=== PATIENT | male | born 1935 | race Caucasian/White ===

== ENCOUNTER 2017-10-13 21:41 | Inpatient (IN) ==
[2017-10-13] MEDS ORDERED: ACETAMINOPHEN 500 MG TABLET PO STA (22:05)
[2017-10-13] MEDS ORDERED: SODIUM CHLORIDE 0.9% 500 ML IV STA (22:05)
[2017-10-13] MEDS ORDERED: ACETAMINOPHEN 500 MG TABLET ONE (22:23)
[2017-10-13 22:24] LABS: Eosinophils % 0.8 % (0.00-10.9); Hematocrit 24.8 VOL% (42.0-52.0); Hemoglobin 8.6 GM/DL (14.0-18.0); Immature Granulocytes % 1.5 %; Immature Granulocytes Absolute 0.02 #; Lymphocytes % 72.9 % (21.2-54.2); Mean Corpuscular HGB Conc 34.7 GM/DL (32-36); Mean Corpuscular Hemoglobin 38 PG (27-34); Mean Corpuscular Volume 108.3 FL (87-102); Mean Platelet Volume 10.4 FL (9.6-12.0); Monocytes # 0.1 10*3/uL (0.11-0.8); Monocytes % 7.5 % (1.7-12.7); Neutrophils # 0.2 10*3/uL (1.4-7.4); Neutrophils % 17.3 % (38.7-73.9); Red Blood Count 2.29 MC/CUMM (3.8-5.5); Red Cell Distribution Width 16.3 % (9.3-17.3); White Blood Count 1.3 T/CUMM (4-12)
[2017-10-13 22:26] LABS: Platelet Count 66 T/CUMM (130-400)
[2017-10-13 22:35] LABS: Apearance,Urine CLEAR (Clear); Bilirubin,Urine Negative (Negative); Blood, Urine Negative (Negative); Glucose,Urine (UA) Negative (Negative); Ketones,Urine Negative (Negative); Mucus,Urine Occasional /LPF (Occasional); Nitrite,Urine Negative (Negative); Protein,Urine Negative; RBC,Urine 1 /HPF (0-4); Squamous Epithelial Cell,Urine Occasional /HPF (0-10); Urine Color Yellow (Yellow); Urine Specific Gravity 1.015 (1.001-1.035); Urine Urobilinogen < 2.0 EU/DL (0.2-1.0); WBC,Urine 1 /HPF (0-6)
[2017-10-13 22:41] LABS: Lactic Acid 1.8 MMOL/L (0.4-2.0)
[2017-10-13 23:10] LABS: Albumin 3.7 G/DL (3.4-5.0); Bilirubin,Total 0.8 MG/DL (0.2-1.0); Calcium 7.8 MG/DL (8.5-10.1); Osmolality,Calculated 278.7 MOS/KG (273-304); Potassium 3.7 MMOL/L (3.5-5.1); Total Protein 6.3 G/DL (6.4-8.3)
[2017-10-13] MEDS ORDERED: LEVOFLOXACIN INJ 750 MG in PREMIX 1 EACH IV STA (23:13)
[2017-10-13] MEDS ORDERED: LEVOFLOXACIN INJ 150 ML IV ONE (23:17)
[2017-10-13 23:32] LABS: Sedimentation Rate-Westergren 69 MM/HR (0-20)
[2017-10-13 23:33] LABS: INR 2.3
[2017-10-13 23:35] LABS: PT Patient Result 23.8 SECS
[2017-10-13] MEDS ORDERED: ONDANSETRON 4 MG/2 ML VIAL IV PRN (23:44)
[2017-10-13] MEDS ORDERED: ACETAMINOPHEN 325 MG TABLET PO PRN (23:44)
[2017-10-13] MEDS ORDERED: MORPHINE 10 MG/1 ML VIAL IV PRN (23:44)
[2017-10-13] MEDS ORDERED: ALBUTEROL/IPRATROPIUM 3 ML NEB RESP TX PRN (23:44)
[2017-10-14] MEDS: SODIUM CHLORIDE 0.9% 1,000 ML IV SCH ×3 (00:36→10:45)
[2017-10-14 00:37] LABS: Lymphocytes 80 % (20-55); Platelet Estimate Decreased; Segmented Neutrophils 10 % (50-85); Total Cells Counted 100
[2017-10-14 00:38] LABS: Hypochromasia Slight; Tear Drop Cells Few
[2017-10-14 00:39] LABS: Polychromasia Slight
[2017-10-14 06:25] LABS: Basophils % 0.8 % (0.0-0.8); Hematocrit 21.4 VOL% (42.0-52.0); Hemoglobin 7.6 GM/DL (14.0-18.0); Immature Granulocytes % 1.6 %; Immature Granulocytes Absolute 0.02 #; Lymphocytes % 77.4 % (21.2-54.2); Mean Corpuscular HGB Conc 35.5 GM/DL (32-36); Mean Corpuscular Hemoglobin 38 PG (27-34); Mean Platelet Volume 10.5 FL (9.6-12.0); Monocytes # 0.1 10*3/uL (0.11-0.8); Monocytes % 8.9 % (1.7-12.7); Neutrophils # 0.1 10*3/uL (1.4-7.4); Neutrophils % 11.3 % (38.7-73.9); Platelet Count 54 T/CUMM (130-400); Red Cell Distribution Width 16.4 % (9.3-17.3); White Blood Count 1.2 T/CUMM (4-12)
[2017-10-14 06:51] LABS: Eosinophils 2 % (0-10); Lymphocytes 80 % (20-55); Metamyelocytes 1 %; Segmented Neutrophils 15 % (50-85); Total Cells Counted 100
[2017-10-14 06:52] LABS: Hypochromasia 1+; Macrocytosis 1+; Ovalocytes Slight; Platelet Estimate Decreased
[2017-10-14 06:53] LABS: Tear Drop Cells Slight
[2017-10-14 06:57] LABS: Albumin 3.1 G/DL (3.4-5.0); Bilirubin,Total 1.4 MG/DL (0.2-1.0); Calcium 7.3 MG/DL (8.5-10.1); Magnesium 2.2 MG/DL (1.8-2.4); Osmolality,Calculated 281.3 MOS/KG (273-304); Potassium 3.8 MMOL/L (3.5-5.1); Total Protein 5.2 G/DL (6.4-8.3)
[2017-10-14] MEDS ORDERED: LANSOPRAZOLE 30 MG PO SCH (09:00)
[2017-10-14] MEDS ORDERED: DOCUSATE SODIUM 100 MG CAPSULE PO SCH (09:00)
[2017-10-14] MEDS: MULTIVITAMIN (CENTRUM) TABLET PO SCH (09:10)
[2017-10-14] MEDS: FLUTICASONE 50 MCG NASAL SPRAY 16 GM BOTTLE BOTH NARES SCH (09:11)
[2017-10-14] MEDS: PANTOPRAZOLE 40 MG VIAL IV SCH (09:14)
[2017-10-14] MEDS: POLYETHYLENE GLYCOL POWDER 17 GM PACK PO SCH (09:20)
[2017-10-14] MEDS: amLODIPine 2.5 MG TABLET PO SCH (09:21)
[2017-10-14] MEDS ORDERED: SODIUM CHLORIDE 0.9% 1,000 ML IV PRN (12:35)
[2017-10-14] MEDS ORDERED: WARFARIN 5 MG TABLET PO SCH (18:00)
[2017-10-14] MEDS: FLECAINIDE 50 MG TABLET PO SCH ×2 (18:16→21:43)
[2017-10-14] MEDS: MAGNESIUM CHLORIDE 64 MG TABLET PO SCH (18:21)
[2017-10-14] MEDS: CLORAZEPATE 3.75 MG TABLET PO SCH (21:44)
[2017-10-15] MEDS: LEVOFLOXACIN INJ 750 MG in PREMIX 1 EACH IV SCH (00:26)
[2017-10-15] MEDS ORDERED: DIAZEPAM 5 MG TABLET PO ONE (08:00)
[2017-10-15] MEDS ORDERED: HEPARIN 5,000 UNIT/1 ML VIAL ONE (08:04)
[2017-10-15] MEDS: SODIUM CHLORIDE 0.9% 1,000 ML IV SCH (08:16)
[2017-10-15] MEDS: POLYETHYLENE GLYCOL POWDER 17 GM PACK PO SCH (12:59)
[2017-10-15] MEDS: MULTIVITAMIN (CENTRUM) TABLET PO SCH (13:01)
[2017-10-15] MEDS: amLODIPine 2.5 MG TABLET PO SCH (13:01)
[2017-10-15] MEDS: FLECAINIDE 50 MG TABLET PO SCH ×2 (13:02→20:54)
[2017-10-15] MEDS: MAGNESIUM CHLORIDE 64 MG TABLET PO SCH (13:03)
[2017-10-15] MEDS: FLUTICASONE 50 MCG NASAL SPRAY 16 GM BOTTLE BOTH NARES SCH (13:04)
[2017-10-15] MEDS ORDERED: WARFARIN 7.5 MG TABLET PO SCH (18:00)
[2017-10-15] MEDS: PANTOPRAZOLE 40 MG VIAL IV SCH (19:01)
[2017-10-15] MEDS: CLORAZEPATE 3.75 MG TABLET PO SCH (20:55)
[2017-10-16] MEDS: LEVOFLOXACIN INJ 750 MG in PREMIX 1 EACH IV SCH (00:30)
[2017-10-16 05:28] LABS: Basophils % 0.6 % (0.0-0.8); Eosinophils # 0.1 10*3/uL (0.0-0.87); Eosinophils % 2.9 % (0.00-10.9); Hematocrit 26.4 VOL% (42.0-52.0); Hemoglobin 9.3 GM/DL (14.0-18.0); Immature Granulocytes % 1.1 %; Immature Granulocytes Absolute 0.02 #; Lymphocytes # 1.4 10*3/uL (1.4-4.0); Lymphocytes % 77.6 % (21.2-54.2); Mean Corpuscular HGB Conc 35.2 GM/DL (32-36); Mean Corpuscular Hemoglobin 35 PG (27-34); Mean Corpuscular Volume 99.6 FL (87-102); Monocytes # 0.2 10*3/uL (0.11-0.8); Monocytes % 9.2 % (1.7-12.7); NRBC # 0.03 10*3/uL; Neutrophils # 0.2 10*3/uL (1.4-7.4); Neutrophils % 8.6 % (38.7-73.9); Platelet Count 45 T/CUMM (130-400); Red Blood Count 2.65 MC/CUMM (3.8-5.5); Red Cell Distribution Width 21.3 % (9.3-17.3); White Blood Count 1.7 T/CUMM (4-12)
[2017-10-16 05:30] LABS: INR 1.3; PT Patient Result 13.3 SECS
[2017-10-16 05:56] LABS: Magnesium 2.2 MG/DL (1.8-2.4); Osmolality,Calculated 282.1 MOS/KG (273-304); Potassium 3.9 MMOL/L (3.5-5.1)
[2017-10-16 06:05] LABS: Eosinophils 7 % (0-10); Hypochromasia 1+; Lymphocytes 78 % (20-55); Platelet Estimate Decreased; Segmented Neutrophils 8 % (50-85); Total Cells Counted 100
[2017-10-16 06:06] LABS: Atypical Lymphocytes Few; Giant Platelets Few; Ovalocytes Slight
[2017-10-16] MEDS: FLUTICASONE 50 MCG NASAL SPRAY 16 GM BOTTLE BOTH NARES SCH (08:41)
[2017-10-16] MEDS: POLYETHYLENE GLYCOL POWDER 17 GM PACK PO SCH (08:41)
[2017-10-16] MEDS: FLECAINIDE 50 MG TABLET PO SCH (08:42)
[2017-10-16] MEDS: MAGNESIUM CHLORIDE 64 MG TABLET PO SCH (08:42)
[2017-10-16] MEDS: amLODIPine 2.5 MG TABLET PO SCH (08:42)
[2017-10-16] MEDS: PANTOPRAZOLE 40 MG VIAL IV SCH (08:42)
[2017-10-16] MEDS: MULTIVITAMIN (CENTRUM) TABLET PO SCH (08:42)
[2017-10-16 12:26] VITALS: BP 133/68
== END 2017-10-16 13:05 | disposition home or self-care (01) | DRG 193 ==
LOC: N.ED 21:41 → N.EDINP 23:15 → N.4E 23:33
PROVIDERS: ADMIT Family Medicine; ATTEND Family Medicine

== ENCOUNTER 2017-10-28 10:12 | Inpatient (IN) ==
[2017-10-28] MEDS ORDERED: LEVOFLOXACIN INJ 750 MG in PREMIX 1 EACH IV STA (10:33)
[2017-10-28] MEDS ORDERED: SODIUM CHLORIDE 0.9% 500 ML IV STA (10:33)
[2017-10-28] MEDS ORDERED: ACETAMINOPHEN 500 MG TABLET PO STA (10:33)
[2017-10-28 11:09] LABS: Hematocrit 33.7 VOL% (42.0-52.0); Hemoglobin 11.5 GM/DL (14.0-18.0); Immature Granulocytes % 11.7 %; Immature Granulocytes Absolute 0.12 #; Lymphocytes # 0.7 10*3/uL (1.4-4.0); Lymphocytes % 64.1 % (21.2-54.2); Mean Corpuscular HGB Conc 34.1 GM/DL (32-36); Mean Corpuscular Hemoglobin 35 PG (27-34); Mean Corpuscular Volume 102.1 FL (87-102); Mean Platelet Volume 9.4 FL (9.6-12.0); Monocytes # 0.2 10*3/uL (0.11-0.8); Monocytes % 15.5 % (1.7-12.7); Neutrophils # 0.1 10*3/uL (1.4-7.4); Neutrophils % 8.7 % (38.7-73.9); Platelet Count 116 T/CUMM (130-400); Red Cell Distribution Width 20.5 % (9.3-17.3)
[2017-10-28 11:22] LABS: INR 2.4
[2017-10-28 11:26] LABS: PT Patient Result 24.4 SECS
[2017-10-28 11:31] LABS: Giant Platelets Few; Hypochromasia 1+; Lymphocytes 88 % (20-55); Macrocytosis Slight; Platelet Estimate Decreased; Polychromasia Slight; Total Cells Counted 100
[2017-10-28 11:32] LABS: Atypical Lymphocytes Few
[2017-10-28 11:37] LABS: Alanine Aminotransferase 24 U/L (16-61); Albumin 3.5 G/DL (3.4-5.0); Alkaline Phosphatase 76 U/L (45-117); Amylase 25 U/L (25-115); Aspartate Amino Transferase 17 U/L (0-37); Blood Urea Nitrogen 16 MG/DL (7-18); Calcium 8.2 MG/DL (8.5-10.1); Glucose 123 MG/DL (74-106); Osmolality,Calculated 271.1 MOS/KG (273-304); Potassium 3.6 MMOL/L (3.5-5.1); Sodium 135 MMOL/L (136-145); Total Protein 6.9 G/DL (6.4-8.3); Troponin I Only < 0.015 NG/ML (0.00-0.045)
[2017-10-28] MEDS ORDERED: ACETAMINOPHEN 500 MG TABLET ONE (11:40)
[2017-10-28] MEDS ORDERED: LEVOFLOXACIN INJ 150 ML IV ONE (11:41)
[2017-10-28 12:48] LABS: Apearance,Urine CLEAR (Clear); Bilirubin,Urine Negative (Negative); Blood, Urine Negative (Negative); Glucose,Urine (UA) Negative (Negative); Hyaline Casts,Urine 1 /LPF (0-3); Ketones,Urine Negative (Negative); Mucus,Urine Occasional /LPF (Occasional); Nitrite,Urine Negative (Negative); Protein,Urine Negative; RBC,Urine 3 /HPF (0-4); Urine Color Yellow (Yellow); Urine Specific Gravity 1.014 (1.001-1.035); Urine Urobilinogen < 2.0 EU/DL (0.2-1.0); WBC,Urine <1 /HPF (0-6)
[2017-10-28] MEDS ORDERED: VANCOMYCIN INJ 1,000 MG in SODIUM CHLORIDE 0.9% 250 ML IV STA (13:11)
[2017-10-28] MEDS ORDERED: VANCOMYCIN 1,000 MG VIAL ONE (14:35)
[2017-10-28] MEDS ORDERED: ONDANSETRON 4 MG/2 ML VIAL IV PRN ×2 (15:28→17:29)
[2017-10-28] MEDS ORDERED: HYDROmorphone 2 MG/1 ML VIAL IV PRN (15:28)
[2017-10-28] MEDS ORDERED: LEVOFLOXACIN INJ 750 MG in PREMIX 1 EACH IV SCH (16:00)
[2017-10-28] MEDS ORDERED: VANCOMYCIN INJ 1,250 MG in SODIUM CHLORIDE 0.9% 250 ML IV SCH (17:00)
[2017-10-28] MEDS ORDERED: MYLANTA/LIDO VISC 2:1 300 ML BOTTLE SWISH/SWAL PRN (17:29)
[2017-10-28] MEDS ORDERED: LOPERAMIDE 2 MG CAPSULE PO PRN ×2 (17:29)
[2017-10-28] MEDS ORDERED: chlorproMAZINE INJ 50 MG in SODIUM CHLORIDE 0.9% 100 ML IV PRN (17:29)
[2017-10-28] MEDS ORDERED: BENZTROPINE 2 MG/2 ML AMP IV PRN (17:29)
[2017-10-28] MEDS ORDERED: PROMETHAZINE INJ 25 MG in SODIUM CHLORIDE 0.9% 50 ML IV PRN (17:29)
[2017-10-28] MEDS ORDERED: chlorproMAZINE INJ 25 MG in SODIUM CHLORIDE 0.9% 100 ML IV PRN (17:29)
[2017-10-28] MEDS ORDERED: diphenhydrAMINE CAP 25 MG CAPSULE PO PRN (17:29)
[2017-10-28] MEDS ORDERED: TEMAZEPAM 7.5 MG CAPSULE PO PRN (17:29)
[2017-10-28] MEDS ORDERED: MYLANTA/LIDO VISC 2:1 300 ML BOTTLE SWISH/SPIT PRN (17:29)
[2017-10-28] MEDS ORDERED: ALUMINUM/MAGNES/SIMETH MAX STR 30 ML UDCUP PO PRN (17:29)
[2017-10-28] MEDS ORDERED: LACTULOSE 20 GM/30 ML UDCUP PO PRN (17:29)
[2017-10-28] MEDS ORDERED: traMADol 50 MG TABLET PO PRN (17:29)
[2017-10-28] MEDS ORDERED: chlorproMAZINE 25 MG TABLET PO PRN (17:29)
[2017-10-28] MEDS ORDERED: ALPRAZolam 0.25 MG TABLET PO PRN (17:29)
[2017-10-28] MEDS: MAGNESIUM HYDROXIDE SUSP 30 ML UDCUP PO PRN (18:10)
[2017-10-28] MEDS: WARFARIN 7.5 MG TABLET PO SCH (18:10)
[2017-10-28 20:24] LABS: INR 2.9
[2017-10-28 20:29] LABS: PT Patient Result 29.1 SECS; Partial Thromboplastin Time 47.8 SECS (0-40)
[2017-10-28] MEDS: FLECAINIDE 50 MG TABLET PO SCH (21:53)
[2017-10-29] MEDS: ACETAMINOPHEN 325 MG TABLET PO PRN ×2 (04:37→22:25)
[2017-10-29 05:27] LABS: Hematocrit 25.6 VOL% (42.0-52.0); Hemoglobin 9.2 GM/DL (14.0-18.0); Immature Granulocytes % 4.2 %; Immature Granulocytes Absolute 0.06 #; Lymphocytes % 70.6 % (21.2-54.2); Mean Corpuscular HGB Conc 35.9 GM/DL (32-36); Mean Corpuscular Hemoglobin 36 PG (27-34); Mean Corpuscular Volume 98.8 FL (87-102); Mean Platelet Volume 9.2 FL (9.6-12.0); Monocytes # 0.3 10*3/uL (0.11-0.8); Monocytes % 18.2 % (1.7-12.7); Neutrophils # 0.1 10*3/uL (1.4-7.4); Platelet Count 118 T/CUMM (130-400); Red Blood Count 2.59 MC/CUMM (3.8-5.5); Red Cell Distribution Width 21.2 % (9.3-17.3); White Blood Count 1.4 T/CUMM (4-12)
[2017-10-29 05:55] LABS: Calcium 7.6 MG/DL (8.5-10.1); Osmolality,Calculated 270.2 MOS/KG (273-304); Potassium 3.7 MMOL/L (3.5-5.1)
[2017-10-29 06:12] LABS: Atypical Lymphocytes Few; Hypochromasia 1+; Lymphocytes 87 % (20-55); Segmented Neutrophils 3 % (50-85); Total Cells Counted 100
[2017-10-29 06:13] LABS: Anisocytosis 1+; Macrocytosis 1+; Ovalocytes Slight
[2017-10-29 06:14] LABS: Platelet Estimate Decreased
[2017-10-29] MEDS ORDERED: MULTIVITAMIN (CENTRUM) TABLET PO SCH (09:00)
[2017-10-29] MEDS ORDERED: amLODIPine 2.5 MG TABLET PO SCH (09:00)
[2017-10-29] MEDS ORDERED: WARFARIN 5 MG TABLET PO SCH ×2 (09:00)
[2017-10-29] MEDS ORDERED: LANSOPRAZOLE 30 MG PO SCH (09:00)
[2017-10-29] MEDS ORDERED: [UNRECOGNIZED DRUG - REMARK] BOTH NARES SCH (09:00)
[2017-10-29] MEDS: PANTOPRAZOLE 40 MG TABLET PO SCH (09:43)
[2017-10-29] MEDS: amLODIPine 2.5 MG TABLET PO SCH (09:44)
[2017-10-29] MEDS: FLECAINIDE 50 MG TABLET PO SCH ×2 (09:44→22:25)
[2017-10-29] MEDS: MAGNESIUM CHLORIDE 64 MG TABLET PO SCH (10:43)
[2017-10-29] MEDS: POLYETHYLENE GLYCOL POWDER 17 GM PACK PO SCH (10:43)
[2017-10-29] MEDS: VANCOMYCIN INJ 1,250 MG in SODIUM CHLORIDE 0.9% 250 ML IV SCH (11:12)
[2017-10-29] MEDS: LEVOFLOXACIN INJ 750 MG in PREMIX 1 EACH IV SCH (12:36)
[2017-10-29] MEDS: WARFARIN 7.5 MG TABLET PO SCH (18:03)
[2017-10-29] MEDS: CLORAZEPATE 3.75 MG TABLET PO SCH (22:25)
[2017-10-30 07:11] LABS: Eosinophils % 1.3 % (0.00-10.9); Hematocrit 28.5 VOL% (42.0-52.0); Hemoglobin 9.8 GM/DL (14.0-18.0); Immature Granulocytes % 0.6 %; Immature Granulocytes Absolute 0.01 #; Lymphocytes # 1.2 10*3/uL (1.4-4.0); Lymphocytes % 73.8 % (21.2-54.2); Mean Corpuscular HGB Conc 34.4 GM/DL (32-36); Mean Corpuscular Hemoglobin 35 PG (27-34); Mean Corpuscular Volume 101.4 FL (87-102); Mean Platelet Volume 9.6 FL (9.6-12.0); Monocytes # 0.2 10*3/uL (0.11-0.8); Monocytes % 12.5 % (1.7-12.7); Neutrophils # 0.2 10*3/uL (1.4-7.4); Neutrophils % 11.8 % (38.7-73.9); Platelet Count 120 T/CUMM (130-400); Red Blood Count 2.81 MC/CUMM (3.8-5.5); Red Cell Distribution Width 20.6 % (9.3-17.3); White Blood Count 1.6 T/CUMM (4-12)
[2017-10-30 07:21] LABS: INR 1.8; PT Patient Result 18.7 SECS
[2017-10-30 07:38] LABS: Albumin 3.3 G/DL (3.4-5.0); Bilirubin,Total 1.4 MG/DL (0.2-1.0); Calcium 8.3 MG/DL (8.5-10.1); Osmolality,Calculated 278.5 MOS/KG (273-304); Potassium 3.6 MMOL/L (3.5-5.1); Total Protein 6.1 G/DL (6.4-8.3)
[2017-10-30 08:01] LABS: Hypochromasia 2+; Lymphocytes 83 % (20-55); Microcytosis Slight; Platelet Estimate Decreased; Segmented Neutrophils 17 % (50-85); Total Cells Counted 100
[2017-10-30] MEDS: POLYETHYLENE GLYCOL POWDER 17 GM PACK PO SCH (10:44)
[2017-10-30] MEDS: MULTIVITAMIN (CENTRUM) TABLET PO SCH (10:45)
[2017-10-30] MEDS: FLECAINIDE 50 MG TABLET PO SCH ×2 (10:45→21:33)
[2017-10-30] MEDS: FLUCONAZOLE 200 MG TABLET PO SCH (10:45)
[2017-10-30] MEDS: PANTOPRAZOLE 40 MG TABLET PO SCH (10:46)
[2017-10-30] MEDS: amLODIPine 2.5 MG TABLET PO SCH (10:46)
[2017-10-30] MEDS: MAGNESIUM CHLORIDE 64 MG TABLET PO SCH (10:47)
[2017-10-30] MEDS: OSELTAMIVIR 75 MG CAPSULE PO SCH ×2 (10:52→21:33)
[2017-10-30] MEDS: VANCOMYCIN INJ 1,250 MG in SODIUM CHLORIDE 0.9% 250 ML IV SCH (11:16)
[2017-10-30] MEDS: LEVOFLOXACIN INJ 750 MG in PREMIX 1 EACH IV SCH (14:33)
[2017-10-30] MEDS: WARFARIN 7.5 MG TABLET PO SCH (17:54)
[2017-10-30] MEDS: CLORAZEPATE 3.75 MG TABLET PO SCH (21:33)
[2017-10-31] MEDS: ACETAMINOPHEN 325 MG TABLET PO PRN ×3 (00:47→16:59)
[2017-10-31 04:34] LABS: Hematocrit 23.2 VOL% (42.0-52.0); Hemoglobin 7.9 GM/DL (14.0-18.0); Immature Granulocytes Absolute 0.05 #; Lymphocytes # 0.8 10*3/uL (1.4-4.0); Mean Corpuscular HGB Conc 34.1 GM/DL (32-36); Mean Corpuscular Hemoglobin 34 PG (27-34); Mean Corpuscular Volume 100.9 FL (87-102); Mean Platelet Volume 9.7 FL (9.6-12.0); Monocytes # 0.2 10*3/uL (0.11-0.8); Platelet Count 89 T/CUMM (130-400); Red Cell Distribution Width 20.1 % (9.3-17.3)
[2017-10-31 04:52] LABS: Albumin 2.8 G/DL (3.4-5.0); Bilirubin,Total 1.3 MG/DL (0.2-1.0); Calcium 7.5 MG/DL (8.5-10.1); Osmolality,Calculated 272.1 MOS/KG (273-304); Potassium 3.4 MMOL/L (3.5-5.1); Total Protein 5.1 G/DL (6.4-8.3)
[2017-10-31 05:29] LABS: Lymphocytes 92 % (20-55); Segmented Neutrophils 4 % (50-85); Total Cells Counted 100
[2017-10-31 05:30] LABS: Atypical Lymphocytes Few; Giant Platelets Few; Hypochromasia 1+; Microcytosis Slight; Ovalocytes Slight; Platelet Estimate Decreased
[2017-10-31] MEDS: POLYETHYLENE GLYCOL POWDER 17 GM PACK PO SCH (09:34)
[2017-10-31] MEDS: OSELTAMIVIR 75 MG CAPSULE PO SCH ×2 (09:35→20:35)
[2017-10-31] MEDS: amLODIPine 2.5 MG TABLET PO SCH (09:35)
[2017-10-31] MEDS: MULTIVITAMIN (CENTRUM) TABLET PO SCH (09:35)
[2017-10-31] MEDS: FLUCONAZOLE 200 MG TABLET PO SCH (09:35)
[2017-10-31] MEDS: MAGNESIUM CHLORIDE 64 MG TABLET PO SCH (09:35)
[2017-10-31] MEDS: PANTOPRAZOLE 40 MG TABLET PO SCH (09:35)
[2017-10-31] MEDS: FLECAINIDE 50 MG TABLET PO SCH ×2 (09:36→20:35)
[2017-10-31] MEDS ORDERED: POTASSIUM CHLORIDE 20 MEQ TABLET PO ONE (10:23)
[2017-10-31] MEDS: VANCOMYCIN INJ 1,250 MG in SODIUM CHLORIDE 0.9% 250 ML IV SCH (11:46)
[2017-10-31] MEDS: LEVOFLOXACIN INJ 750 MG in PREMIX 1 EACH IV SCH (13:39)
[2017-10-31] MEDS: WARFARIN 7.5 MG TABLET PO SCH (17:56)
[2017-10-31] MEDS: CLORAZEPATE 3.75 MG TABLET PO SCH (20:37)
[2017-11-01] MEDS: ACETAMINOPHEN 325 MG TABLET PO PRN ×2 (04:00→18:23)
[2017-11-01] MEDS: guaiFENesin 200 MG/10 ML UDCUP PO PRN ×2 (04:01→22:21)
[2017-11-01 06:58] LABS: Hematocrit 22.4 VOL% (42.0-52.0); Hemoglobin 7.8 GM/DL (14.0-18.0); Immature Granulocytes % 1.1 %; Immature Granulocytes Absolute 0.01 #; Lymphocytes # 0.7 10*3/uL (1.4-4.0); Lymphocytes % 76.7 % (21.2-54.2); Mean Corpuscular HGB Conc 34.8 GM/DL (32-36); Mean Corpuscular Hemoglobin 36 PG (27-34); Mean Corpuscular Volume 101.8 FL (87-102); Mean Platelet Volume 9.6 FL (9.6-12.0); Monocytes # 0.1 10*3/uL (0.11-0.8); Monocytes % 15.6 % (1.7-12.7); Neutrophils # 0.1 10*3/uL (1.4-7.4); Neutrophils % 6.6 % (38.7-73.9); Platelet Count 96 T/CUMM (130-400); Red Cell Distribution Width 20.2 % (9.3-17.3)
[2017-11-01 07:07] LABS: White Blood Count 0.9 T/CUMM (4-12)
[2017-11-01 07:20] LABS: Atypical Lymphocytes Few; Hypochromasia 1+; Lymphocytes 90 % (20-55); Microcytosis Slight; Ovalocytes Slight; Platelet Estimate Decreased; Total Cells Counted 100
[2017-11-01 07:24] LABS: Albumin 2.7 G/DL (3.4-5.0); Calcium 7.6 MG/DL (8.5-10.1); Osmolality,Calculated 269.2 MOS/KG (273-304); Potassium 3.6 MMOL/L (3.5-5.1); Total Protein 5.1 G/DL (6.4-8.3)
[2017-11-01] MEDS: MAGNESIUM CHLORIDE 64 MG TABLET PO SCH (10:37)
[2017-11-01] MEDS: amLODIPine 2.5 MG TABLET PO SCH (10:37)
[2017-11-01] MEDS: OSELTAMIVIR 75 MG CAPSULE PO SCH ×2 (10:37→21:14)
[2017-11-01] MEDS: MULTIVITAMIN (CENTRUM) TABLET PO SCH (10:37)
[2017-11-01] MEDS: POLYETHYLENE GLYCOL POWDER 17 GM PACK PO SCH (10:38)
[2017-11-01] MEDS: FLUCONAZOLE 200 MG TABLET PO SCH (10:38)
[2017-11-01] MEDS: FLECAINIDE 50 MG TABLET PO SCH ×2 (10:38→21:14)
[2017-11-01] MEDS: PANTOPRAZOLE 40 MG TABLET PO SCH (10:38)
[2017-11-01] MEDS ORDERED: SODIUM CHLORIDE 0.9% 1,000 ML IV PRN (11:40)
[2017-11-01] MEDS: VANCOMYCIN INJ 1,250 MG in SODIUM CHLORIDE 0.9% 250 ML IV SCH (12:30)
[2017-11-01] MEDS: LEVOFLOXACIN INJ 750 MG in PREMIX 1 EACH IV SCH (15:09)
[2017-11-01] MEDS: WARFARIN 7.5 MG TABLET PO SCH (18:23)
[2017-11-01] MEDS: MAGNESIUM HYDROXIDE SUSP 30 ML UDCUP PO PRN (18:43)
[2017-11-01] MEDS: CLORAZEPATE 3.75 MG TABLET PO SCH (21:14)
[2017-11-02] MEDS: VANCOMYCIN INJ 1,250 MG in SODIUM CHLORIDE 0.9% 250 ML IV SCH ×2 (00:15→11:32)
[2017-11-02 05:41] LABS: Eosinophils % 1.7 % (0.00-10.9); Hematocrit 27.4 VOL% (42.0-52.0); Hemoglobin 9.8 GM/DL (14.0-18.0); Immature Granulocytes % 5.9 %; Immature Granulocytes Absolute 0.07 #; Lymphocytes % 79.8 % (21.2-54.2); Mean Corpuscular HGB Conc 35.8 GM/DL (32-36); Mean Corpuscular Hemoglobin 33 PG (27-34); Mean Corpuscular Volume 93.2 FL (87-102); Mean Platelet Volume 9.5 FL (9.6-12.0); Monocytes # 0.1 10*3/uL (0.11-0.8); Monocytes % 7.6 % (1.7-12.7); Neutrophils # 0.1 10*3/uL (1.4-7.4); Platelet Count 72 T/CUMM (130-400); Red Blood Count 2.94 MC/CUMM (3.8-5.5); Red Cell Distribution Width 22.4 % (9.3-17.3); White Blood Count 1.2 T/CUMM (4-12)
[2017-11-02 06:30] LABS: Hypochromasia 1+; Lymphocytes 86 % (20-55); Segmented Neutrophils 5 % (50-85); Total Cells Counted 100
[2017-11-02 06:31] LABS: Atypical Lymphocytes Few; Microcytosis 1+; Ovalocytes Slight; Platelet Estimate Decreased
[2017-11-02 06:57] LABS: Albumin 2.5 G/DL (3.4-5.0); Bilirubin,Total 1.3 MG/DL (0.2-1.0); Calcium 7.5 MG/DL (8.5-10.1); Potassium 3.8 MMOL/L (3.5-5.1)
[2017-11-02] MEDS: POLYETHYLENE GLYCOL POWDER 17 GM PACK PO SCH (09:36)
[2017-11-02] MEDS: MULTIVITAMIN (CENTRUM) TABLET PO SCH (09:36)
[2017-11-02] MEDS: FLECAINIDE 50 MG TABLET PO SCH ×2 (09:36→21:39)
[2017-11-02] MEDS: amLODIPine 2.5 MG TABLET PO SCH (09:36)
[2017-11-02] MEDS: MAGNESIUM CHLORIDE 64 MG TABLET PO SCH (09:36)
[2017-11-02] MEDS: OSELTAMIVIR 75 MG CAPSULE PO SCH ×2 (09:36→21:39)
[2017-11-02] MEDS: PANTOPRAZOLE 40 MG TABLET PO SCH (09:37)
[2017-11-02] MEDS: MAGNESIUM HYDROXIDE SUSP 30 ML UDCUP PO PRN (11:32)
[2017-11-02] MEDS: VORICONAZOLE INJ 600 MG in SODIUM CHLORIDE 0.9% 250 ML IV SCH ×2 (11:32→21:42)
[2017-11-02] MEDS: LEVOFLOXACIN INJ 750 MG in PREMIX 1 EACH IV SCH (13:57)
[2017-11-02] MEDS: WARFARIN 7.5 MG TABLET PO SCH (17:37)
[2017-11-02] MEDS: CLORAZEPATE 3.75 MG TABLET PO SCH (21:39)
[2017-11-03] MEDS: VANCOMYCIN INJ 1,250 MG in SODIUM CHLORIDE 0.9% 250 ML IV SCH ×2 (00:58→11:35)
[2017-11-03 05:15] LABS: Hematocrit 26.6 VOL% (42.0-52.0); Hemoglobin 9.2 GM/DL (14.0-18.0); Immature Granulocytes Absolute 0.01 #; Lymphocytes # 0.7 10*3/uL (1.4-4.0); Mean Corpuscular HGB Conc 34.6 GM/DL (32-36); Mean Corpuscular Hemoglobin 33 PG (27-34); Mean Corpuscular Volume 95.7 FL (87-102); Mean Platelet Volume 9.9 FL (9.6-12.0); Monocytes # 0.1 10*3/uL (0.11-0.8); Neutrophils # 0.1 10*3/uL (1.4-7.4); Platelet Count 69 T/CUMM (130-400); Red Blood Count 2.78 MC/CUMM (3.8-5.5); Red Cell Distribution Width 22.4 % (9.3-17.3)
[2017-11-03 05:30] LABS: INR 3.2
[2017-11-03 05:36] LABS: PT Patient Result 32.8 SECS
[2017-11-03 05:51] LABS: Lymphocytes 92 % (20-55); Platelet Estimate Decreased; Segmented Neutrophils 4 % (50-85); Total Cells Counted 100
[2017-11-03 05:52] LABS: Atypical Lymphocytes Few; Giant Platelets Few; Hypochromasia 1+; Microcytosis Slight; Ovalocytes Slight
[2017-11-03] MEDS ORDERED: WARFARIN 5 MG TABLET PO SCH (08:50)
[2017-11-03] MEDS: MAGNESIUM CHLORIDE 64 MG TABLET PO SCH (09:39)
[2017-11-03] MEDS: MULTIVITAMIN (CENTRUM) TABLET PO SCH (09:39)
[2017-11-03] MEDS: FLECAINIDE 50 MG TABLET PO SCH ×2 (09:40→22:40)
[2017-11-03] MEDS: POLYETHYLENE GLYCOL POWDER 17 GM PACK PO SCH ×2 (09:40→09:41)
[2017-11-03] MEDS: OSELTAMIVIR 75 MG CAPSULE PO SCH ×2 (09:40→22:41)
[2017-11-03] MEDS: PANTOPRAZOLE 40 MG TABLET PO SCH (09:40)
[2017-11-03] MEDS: amLODIPine 2.5 MG TABLET PO SCH (09:40)
[2017-11-03] MEDS: VORICONAZOLE INJ 600 MG in SODIUM CHLORIDE 0.9% 250 ML IV SCH ×2 (11:35→22:41)
[2017-11-03] MEDS: LEVOFLOXACIN INJ 750 MG in PREMIX 1 EACH IV SCH (15:53)
[2017-11-03] MEDS: CLORAZEPATE 3.75 MG TABLET PO SCH (22:40)
[2017-11-04] MEDS: VANCOMYCIN INJ 1,250 MG in SODIUM CHLORIDE 0.9% 250 ML IV SCH (01:45)
[2017-11-04 06:08] LABS: Eosinophils % 2.4 % (0.00-10.9); Hematocrit 26.6 VOL% (42.0-52.0); Hemoglobin 9.2 GM/DL (14.0-18.0); Immature Granulocytes % 4.9 %; Immature Granulocytes Absolute 0.04 #; Lymphocytes # 0.6 10*3/uL (1.4-4.0); Lymphocytes % 74.4 % (21.2-54.2); Mean Corpuscular HGB Conc 34.6 GM/DL (32-36); Mean Corpuscular Hemoglobin 34 PG (27-34); Mean Corpuscular Volume 97.4 FL (87-102); Mean Platelet Volume 9.8 FL (9.6-12.0); Monocytes # 0.1 10*3/uL (0.11-0.8); Monocytes % 7.3 % (1.7-12.7); Neutrophils # 0.1 10*3/uL (1.4-7.4); Platelet Count 74 T/CUMM (130-400); Red Blood Count 2.73 MC/CUMM (3.8-5.5); Red Cell Distribution Width 21.7 % (9.3-17.3)
[2017-11-04 06:19] LABS: White Blood Count 0.8 T/CUMM (4-12)
[2017-11-04 06:36] LABS: Band Neutrophils 5 % (0-10); Lymphocytes 79 % (20-55); Segmented Neutrophils 8 % (50-85); Total Cells Counted 100
[2017-11-04 06:37] LABS: Macrocytosis 2+; Platelet Estimate Decreased
[2017-11-04 06:49] LABS: Albumin 2.5 G/DL (3.4-5.0); Bilirubin,Total 0.7 MG/DL (0.2-1.0); Calcium 7.7 MG/DL (8.5-10.1); Osmolality,Calculated 279.3 MOS/KG (273-304); Potassium 3.4 MMOL/L (3.5-5.1); Total Protein 4.8 G/DL (6.4-8.3)
[2017-11-04 07:49] LABS: PT Patient Result 54.2 SECS
[2017-11-04 07:50] LABS: INR 5.5
[2017-11-04] MEDS ORDERED: PHYTONADIONE 10 MG/1 ML AMP SUBCUT ONE (08:33)
[2017-11-04 09:40] LABS: CMV PCR Source CEREBROSPINAL FLUID
[2017-11-04] MEDS: cefTAZidime 1,000 MG in SYRINGE 1 EACH IV SCH ×2 (10:07→17:22)
[2017-11-04] MEDS: OSELTAMIVIR 75 MG CAPSULE PO SCH (10:10)
[2017-11-04] MEDS: amLODIPine 2.5 MG TABLET PO SCH (10:10)
[2017-11-04] MEDS: PANTOPRAZOLE 40 MG TABLET PO SCH (10:10)
[2017-11-04] MEDS: FLECAINIDE 50 MG TABLET PO SCH ×2 (10:10→21:21)
[2017-11-04] MEDS: MAGNESIUM CHLORIDE 64 MG TABLET PO SCH (10:10)
[2017-11-04] MEDS: POLYETHYLENE GLYCOL POWDER 17 GM PACK PO SCH (10:10)
[2017-11-04] MEDS: MULTIVITAMIN (CENTRUM) TABLET PO SCH (10:10)
[2017-11-04] MEDS: VORICONAZOLE INJ 600 MG in SODIUM CHLORIDE 0.9% 250 ML IV SCH ×2 (11:05→22:24)
[2017-11-04] MEDS: CLORAZEPATE 3.75 MG TABLET PO SCH (21:21)
[2017-11-05] MEDS: cefTAZidime 1,000 MG in SYRINGE 1 EACH IV SCH ×2 (02:27→09:43)
[2017-11-05 07:11] LABS: Eosinophils % 2.1 % (0.00-10.9); Hematocrit 28.4 VOL% (42.0-52.0); Hemoglobin 9.7 GM/DL (14.0-18.0); Immature Granulocytes % 4.1 %; Immature Granulocytes Absolute 0.04 #; Lymphocytes # 0.7 10*3/uL (1.4-4.0); Lymphocytes % 73.2 % (21.2-54.2); Mean Corpuscular HGB Conc 34.2 GM/DL (32-36); Mean Corpuscular Hemoglobin 33 PG (27-34); Mean Corpuscular Volume 96.6 FL (87-102); Mean Platelet Volume 9.7 FL (9.6-12.0); Monocytes # 0.1 10*3/uL (0.11-0.8); Monocytes % 11.3 % (1.7-12.7); Neutrophils # 0.1 10*3/uL (1.4-7.4); Neutrophils % 9.3 % (38.7-73.9); Platelet Count 68 T/CUMM (130-400); Red Blood Count 2.94 MC/CUMM (3.8-5.5)
[2017-11-05 07:25] LABS: INR 5.9
[2017-11-05 07:34] LABS: Band Neutrophils 4 % (0-10); Giant Platelets Few; Hypochromasia 1+; Lymphocytes 76 % (20-55); Ovalocytes Slight; Platelet Estimate Decreased; Segmented Neutrophils 4 % (50-85); Total Cells Counted 100
[2017-11-05 07:35] LABS: Atypical Lymphocytes Few; Microcytosis Slight
[2017-11-05 07:50] LABS: Albumin 2.6 G/DL (3.4-5.0); Bilirubin,Total 0.4 MG/DL (0.2-1.0); Calcium 7.9 MG/DL (8.5-10.1); Potassium 3.6 MMOL/L (3.5-5.1); Total Protein 5.3 G/DL (6.4-8.3)
[2017-11-05] MEDS: amLODIPine 2.5 MG TABLET PO SCH (09:42)
[2017-11-05] MEDS: MULTIVITAMIN (CENTRUM) TABLET PO SCH (09:42)
[2017-11-05] MEDS: MAGNESIUM CHLORIDE 64 MG TABLET PO SCH (09:43)
[2017-11-05] MEDS: PANTOPRAZOLE 40 MG TABLET PO SCH (09:43)
[2017-11-05] MEDS: POLYETHYLENE GLYCOL POWDER 17 GM PACK PO SCH (09:43)
[2017-11-05] MEDS: FLECAINIDE 50 MG TABLET PO SCH (09:43)
[2017-11-05 12:20] VITALS: BP 109/54
[2017-11-10 00:11] LABS: Adenovirus Negative (Negative); Influenza A Negative (Negative); Influenza B Negative (Negative); Parainfluenza 1 Negative (Negative); Parainfluenza 2 Negative (Negative); RSV A Negative (Negative); RSV B Negative (Negative)
== END 2017-11-05 11:10 | disposition home or self-care (01) | DRG 152 ==
LOC: N.ED 10:12 → N.EDINP 13:52 → N.4E 15:27
PROVIDERS: ADMIT Specialist; ATTEND Specialist

== ENCOUNTER 2018-06-21 16:47 | Inpatient (IN) ==
[2018-06-21] MEDS ORDERED: SODIUM CHLORIDE 0.9% 2,000 ML IV STA (17:30)
[2018-06-21] MEDS ORDERED: SODIUM CHLORIDE 0.9% 2,300 ML IV ONE (17:46)
[2018-06-21 18:13] LABS: Hematocrit 25.6 VOL% (42.0-52.0); Immature Granulocytes % 5.4 %; Immature Granulocytes Absolute 0.06 #; Lymphocytes # 0.8 10*3/uL (1.4-4.0); Lymphocytes % 67.9 % (21.2-54.2); Mean Corpuscular HGB Conc 35.2 GM/DL (32-36); Mean Corpuscular Hemoglobin 36 PG (27-34); Mean Platelet Volume 9.9 FL (9.6-12.0); Monocytes # 0.2 10*3/uL (0.11-0.8); Monocytes % 18.8 % (1.7-12.7); Neutrophils # 0.1 10*3/uL (1.4-7.4); Neutrophils % 7.9 % (38.7-73.9); Platelet Count 102 T/CUMM (130-400); Red Blood Count 2.51 MC/CUMM (3.8-5.5); Red Cell Distribution Width 21.3 % (9.3-17.3); White Blood Count 1.1 T/CUMM (4-12)
[2018-06-21 18:20] LABS: INR 1.2; Partial Thromboplastin Time 30.6 SECS (0-40)
[2018-06-21 18:30] LABS: Albumin 3.5 G/DL (3.4-5.0); Bilirubin,Total 1.5 MG/DL (0.2-1.0); Calcium 7.5 MG/DL (8.5-10.1); Potassium 3.7 MMOL/L (3.5-5.1); Total Protein 6.2 G/DL (6.4-8.3)
[2018-06-21] MEDS ORDERED: AZTREONAM 1,000 MG VIAL ONE (18:41)
[2018-06-21] MEDS: AZTREONAM 2,000 MG in SYRINGE 1 EACH IV SCH (18:55)
[2018-06-21 19:06] LABS: Anisocytosis 1+; Lymphocytes 72 % (20-55); Platelet Estimate Decreased; Segmented Neutrophils 7 % (50-85); Total Cells Counted 100
[2018-06-21 19:07] LABS: Tear Drop Cells Few
[2018-06-21 19:08] LABS: Hypochromasia 1+
[2018-06-21 19:37] LABS: Apearance,Urine Slightly Hazy (Clear); Bilirubin,Urine Negative (Negative); Blood, Urine Negative (Negative); Glucose,Urine (UA) Negative (Negative); Ketones,Urine Negative (Negative); Mucus,Urine Occasional /LPF (Occasional); Nitrite,Urine Negative (Negative); Protein,Urine Negative; RBC,Urine <1 /HPF (0-4); Urine Color Yellow (Yellow); Urine Specific Gravity 1.015 (1.001-1.035); Urine Urobilinogen < 2.0 EU/DL (0.2-1.0); WBC,Urine 1 /HPF (0-6)
[2018-06-21] MEDS: VANCOMYCIN INJ 1,250 MG in SODIUM CHLORIDE 0.9% 250 ML IV SCH (19:50)
[2018-06-21] MEDS ORDERED: METOCLOPRAMIDE 10 MG/2 ML VIAL IV STA (19:52)
[2018-06-21] MEDS ORDERED: KETOROLAC 30 MG/1 ML VIAL IV STA (19:52)
[2018-06-21] MEDS ORDERED: diphenhydrAMINE 50 MG/1 ML VIAL IV STA (19:52)
[2018-06-21] MEDS ORDERED: ACETAMINOPHEN 500 MG TABLET PO STA (19:53)
[2018-06-21] MEDS ORDERED: ACETAMINOPHEN 325 MG TABLET PO PRN (20:33)
[2018-06-21] MEDS ORDERED: KETOROLAC 30 MG/1 ML VIAL IV PRN (20:33)
[2018-06-21] MEDS ORDERED: ONDANSETRON 4 MG/2 ML VIAL IV PRN (20:33)
[2018-06-21] MEDS: DEXTROSE 5% NACL 0.9% 1,000 ML IV SCH (23:52)
[2018-06-22] MEDS ORDERED: SODIUM CHLORIDE 0.9% 500 ML IV ONE (00:29)
[2018-06-22] MEDS: AZTREONAM 2,000 MG in SYRINGE 1 EACH IV SCH ×4 (00:33→17:46)
[2018-06-22] MEDS: DOCUSATE SODIUM 100 MG CAPSULE PO SCH ×3 (00:33→21:41)
[2018-06-22] MEDS ORDERED: NOREPINEPHRINE 8 MG in SODIUM CHLORIDE 0.9% 242 ML IV PRN (02:12)
[2018-06-22 04:17] LABS: Hematocrit 22.9 VOL% (42.0-52.0); Hemoglobin 7.7 GM/DL (14.0-18.0); Immature Granulocytes % 0.5 %; Immature Granulocytes Absolute 0.01 #; Lymphocytes # 1.5 10*3/uL (1.4-4.0); Lymphocytes % 77.8 % (21.2-54.2); Mean Corpuscular HGB Conc 33.6 GM/DL (32-36); Mean Corpuscular Hemoglobin 36 PG (27-34); Mean Corpuscular Volume 107.5 FL (87-102); Mean Platelet Volume 9.1 FL (9.6-12.0); Monocytes # 0.2 10*3/uL (0.11-0.8); Monocytes % 10.6 % (1.7-12.7); Neutrophils # 0.2 10*3/uL (1.4-7.4); Neutrophils % 11.1 % (38.7-73.9); Red Blood Count 2.13 MC/CUMM (3.8-5.5); Red Cell Distribution Width 21.5 % (9.3-17.3); White Blood Count 1.9 T/CUMM (4-12)
[2018-06-22 04:23] LABS: Platelet Count 93 T/CUMM (130-400)
[2018-06-22 04:53] LABS: Albumin 2.8 G/DL (3.4-5.0); Bilirubin,Total 0.7 MG/DL (0.2-1.0); Calcium 7.1 MG/DL (8.5-10.1); Osmolality,Calculated 282.5 MOS/KG (273-304); Potassium 3.4 MMOL/L (3.5-5.1); Total Protein 5.6 G/DL (6.4-8.3)
[2018-06-22 04:55] LABS: Eosinophils 1 % (0-10); Lymphocytes 88 % (20-55); Segmented Neutrophils 2 % (50-85); Total Cells Counted 100
[2018-06-22 04:56] LABS: Anisocytosis 1+; Atypical Lymphocytes Few; Hypochromasia 1+; Macrocytosis 1+
[2018-06-22 04:57] LABS: Ovalocytes Slight; Platelet Estimate Decreased; Tear Drop Cells Slight
[2018-06-22] MEDS: DEXTROSE 5% NACL 0.9% 1,000 ML IV SCH ×4 (06:14→21:01)
[2018-06-22] MEDS ORDERED: TEMAZEPAM 15 MG CAPSULE PO PRN (07:14)
[2018-06-22] MEDS ORDERED: POTASSIUM CHLORIDE 20 MEQ/15 ML UDCUP PO ONE ×2 (07:33→12:00)
[2018-06-22] MEDS ORDERED: SODIUM CHLORIDE 0.9% 1,000 ML IV PRN (07:42)
[2018-06-22] MEDS: WARFARIN 3 MG TABLET PO SCH (08:43)
[2018-06-22] MEDS: PANTOPRAZOLE 40 MG TABLET PO SCH (08:43)
[2018-06-22] MEDS: CYANOCOBALAMIN 500 MCG TABLET PO SCH (08:44)
[2018-06-22] MEDS: FLECAINIDE 50 MG TABLET PO SCH ×2 (08:44→21:41)
[2018-06-22] MEDS ORDERED: amLODIPine 2.5 MG TABLET PO SCH (09:00)
[2018-06-22] MEDS: VANCOMYCIN INJ 1,250 MG in SODIUM CHLORIDE 0.9% 250 ML IV SCH (14:01)
[2018-06-22] MEDS: POLYMYXIN/TRIMETHOPRIM OPH SOL 10 ML BOTTLE LEFT EYE SCH ×3 (17:46→21:39)
[2018-06-22] MEDS: CLORAZEPATE 3.75 MG TABLET PO SCH (21:41)
[2018-06-23] MEDS: AZTREONAM 2,000 MG in SYRINGE 1 EACH IV SCH ×4 (01:17→20:39)
[2018-06-23] MEDS: DEXTROSE 5% NACL 0.9% 1,000 ML IV SCH ×2 (04:01→11:20)
[2018-06-23 04:56] LABS: Eosinophils % 1.3 % (0.00-10.9); Hematocrit 26.4 VOL% (42.0-52.0); Hemoglobin 9.3 GM/DL (14.0-18.0); Immature Granulocytes % 4.5 %; Immature Granulocytes Absolute 0.07 #; Lymphocytes # 1.3 10*3/uL (1.4-4.0); Lymphocytes % 82.2 % (21.2-54.2); Mean Corpuscular HGB Conc 35.2 GM/DL (32-36); Mean Corpuscular Hemoglobin 35 PG (27-34); Mean Corpuscular Volume 98.5 FL (87-102); Monocytes # 0.1 10*3/uL (0.11-0.8); Monocytes % 8.3 % (1.7-12.7); Neutrophils # 0.1 10*3/uL (1.4-7.4); Neutrophils % 3.7 % (38.7-73.9); Red Blood Count 2.68 MC/CUMM (3.8-5.5); Red Cell Distribution Width 21.1 % (9.3-17.3); White Blood Count 1.6 T/CUMM (4-12)
[2018-06-23 05:00] LABS: Platelet Count 68 T/CUMM (130-400)
[2018-06-23 05:24] LABS: Calcium 7.7 MG/DL (8.5-10.1); Osmolality,Calculated 283.1 MOS/KG (273-304); Potassium 3.9 MMOL/L (3.5-5.1)
[2018-06-23 06:03] LABS: Band Neutrophils 2 % (0-10); Lymphocytes 64 % (20-55); Platelet Estimate Decreased; Segmented Neutrophils 12 % (50-85); Total Cells Counted 100
[2018-06-23] MEDS: FLECAINIDE 50 MG TABLET PO SCH ×2 (10:17→20:38)
[2018-06-23] MEDS: CYANOCOBALAMIN 500 MCG TABLET PO SCH (10:17)
[2018-06-23] MEDS: POTASSIUM CHLORIDE 20 MEQ/15 ML UDCUP PO SCH (10:18)
[2018-06-23] MEDS: DOCUSATE SODIUM 100 MG CAPSULE PO SCH ×2 (10:18→20:38)
[2018-06-23] MEDS: POLYMYXIN/TRIMETHOPRIM OPH SOL 10 ML BOTTLE LEFT EYE SCH ×4 (10:18→20:38)
[2018-06-23] MEDS: PANTOPRAZOLE 40 MG TABLET PO SCH (10:18)
[2018-06-23] MEDS: VANCOMYCIN INJ 1,250 MG in SODIUM CHLORIDE 0.9% 250 ML IV SCH (10:18)
[2018-06-23] MEDS: WARFARIN 3 MG TABLET PO SCH (10:20)
[2018-06-23] MEDS: CLORAZEPATE 3.75 MG TABLET PO SCH (20:38)
[2018-06-24] MEDS: DEXTROSE 5% NACL 0.9% 1,000 ML IV SCH (00:04)
[2018-06-24] MEDS: AZTREONAM 2,000 MG in SYRINGE 1 EACH IV SCH ×2 (01:00→09:14)
[2018-06-24] MEDS: VANCOMYCIN INJ 1,250 MG in SODIUM CHLORIDE 0.9% 250 ML IV SCH (01:02)
[2018-06-24 03:20] LABS: Eosinophils % 2.8 % (0.00-10.9); Hematocrit 23.9 VOL% (42.0-52.0); Hemoglobin 8.1 GM/DL (14.0-18.0); Immature Granulocytes % 2.8 %; Immature Granulocytes Absolute 0.03 #; Lymphocytes # 0.8 10*3/uL (1.4-4.0); Lymphocytes % 79.2 % (21.2-54.2); Mean Corpuscular HGB Conc 33.9 GM/DL (32-36); Mean Corpuscular Hemoglobin 34 PG (27-34); Mean Corpuscular Volume 100.4 FL (87-102); Mean Platelet Volume 10.1 FL (9.6-12.0); Monocytes # 0.1 10*3/uL (0.11-0.8); Monocytes % 8.5 % (1.7-12.7); Neutrophils # 0.1 10*3/uL (1.4-7.4); Neutrophils % 6.7 % (38.7-73.9); Red Blood Count 2.38 MC/CUMM (3.8-5.5); Red Cell Distribution Width 20.4 % (9.3-17.3); White Blood Count 1.1 T/CUMM (4-12)
[2018-06-24 03:24] LABS: INR 1.2; PT Patient Result 12.6 SECS; Platelet Count 59 T/CUMM (130-400)
[2018-06-24 03:52] LABS: Eosinophils 2 % (0-10); Lymphocytes 85 % (20-55); Metamyelocytes 1 %; Segmented Neutrophils 4 % (50-85)
[2018-06-24 03:54] LABS: Hypochromasia Slight; Ovalocytes 1+; Platelet Estimate Decreased
[2018-06-24 03:55] LABS: Tear Drop Cells Few; Total Cells Counted 100
[2018-06-24 04:16] LABS: Reactive Lymphocytes 3+
[2018-06-24 04:17] LABS: Atypical Lymphocytes Few
[2018-06-24 08:36] VITALS: BP 129/65
[2018-06-24] MEDS: DOCUSATE SODIUM 100 MG CAPSULE PO SCH (09:07)
[2018-06-24] MEDS: PANTOPRAZOLE 40 MG TABLET PO SCH (09:07)
[2018-06-24] MEDS: FLECAINIDE 50 MG TABLET PO SCH (09:08)
[2018-06-24] MEDS: CYANOCOBALAMIN 500 MCG TABLET PO SCH (09:09)
[2018-06-24] MEDS: WARFARIN 3 MG TABLET PO SCH (09:09)
[2018-06-24] MEDS: POTASSIUM CHLORIDE 20 MEQ/15 ML UDCUP PO SCH (09:11)
[2018-06-24] MEDS: POLYMYXIN/TRIMETHOPRIM OPH SOL 10 ML BOTTLE LEFT EYE SCH (09:22)
== END 2018-06-24 12:20 | disposition home or self-care (01) | DRG 809 ==
LOC: N.ED 16:47 → N.EDINP 20:33 → N.CC 23:23 → N.4E 06-23 11:15
PROVIDERS: ADMIT Family Medicine; ATTEND Family Medicine

== ENCOUNTER 2018-07-06 17:51 | Inpatient (IN) ==
[2018-07-06] MEDS ORDERED: SODIUM CHLORIDE 0.9% 500 ML IV STA (18:08)
[2018-07-06] MEDS ORDERED: LEVOFLOXACIN INJ 750 MG in PREMIX 1 EACH IV STA (18:11)
[2018-07-06] MEDS ORDERED: KETOROLAC 30 MG/1 ML VIAL IV STA (18:34)
[2018-07-06] MEDS ORDERED: methylPREDNISolone SOD SUC 125 MG/2 ML VIAL IV STA (18:34)
[2018-07-06 18:58] LABS: Hematocrit 28.6 VOL% (42.0-52.0); Hemoglobin 9.7 GM/DL (14.0-18.0); Immature Granulocytes % 3.7 %; Immature Granulocytes Absolute 0.02 #; Lymphocytes # 0.4 10*3/uL (1.4-4.0); Lymphocytes % 68.5 % (21.2-54.2); Mean Corpuscular HGB Conc 33.9 GM/DL (32-36); Mean Corpuscular Hemoglobin 34 PG (27-34); Mean Corpuscular Volume 99.3 FL (87-102); Mean Platelet Volume 8.5 FL (9.6-12.0); Monocytes % 7.4 % (1.7-12.7); Neutrophils # 0.1 10*3/uL (1.4-7.4); Neutrophils % 20.4 % (38.7-73.9); Platelet Count 85 T/CUMM (130-400); Red Blood Count 2.88 MC/CUMM (3.8-5.5); Red Cell Distribution Width 20.2 % (9.3-17.3)
[2018-07-06 19:02] LABS: White Blood Count 0.5 T/CUMM (4-12)
[2018-07-06 19:03] LABS: INR 2.6
[2018-07-06 19:14] LABS: Alanine Aminotransferase 30 U/L (16-61); Albumin 3.9 G/DL (3.4-5.0); Alkaline Phosphatase 74 U/L (45-117); Amylase 60 U/L (25-115); Aspartate Amino Transferase 21 U/L (0-37); Blood Urea Nitrogen 20 MG/DL (7-18); Calcium 8.3 MG/DL (8.5-10.1); Glucose 100 MG/DL (74-106); Osmolality,Calculated 268.4 MOS/KG (273-304); Potassium 3.7 MMOL/L (3.5-5.1); Sodium 133 MMOL/L (136-145); Total Protein 7.6 G/DL (6.4-8.3); Troponin I 0.023 NG/ML (0.00-0.045)
[2018-07-06 19:19] LABS: PT Patient Result 26.2 SECS
[2018-07-06 19:30] LABS: Lactic Acid 2.1 MMOL/L (0.4-2.0)
[2018-07-06] MEDS ORDERED: VANCOMYCIN INJ 1,000 MG in SODIUM CHLORIDE 0.9% 250 ML IV STA (19:44)
[2018-07-06 19:54] LABS: Apearance,Urine CLEAR (Clear); Bilirubin,Urine Negative (Negative); Blood, Urine Negative (Negative); Glucose,Urine (UA) Negative (Negative); Ketones,Urine Negative (Negative); Mucus,Urine Occasional /LPF (Occasional); Nitrite,Urine Negative (Negative); Protein,Urine Negative; RBC,Urine 1 /HPF (0-4); Urine Color Yellow (Yellow); Urine Specific Gravity 1.014 (1.001-1.035); Urine Urobilinogen < 2.0 EU/DL (0.2-1.0); WBC,Urine 2 /HPF (0-6)
[2018-07-06] MEDS ORDERED: ONDANSETRON 4 MG/2 ML VIAL IV PRN (20:10)
[2018-07-06] MEDS ORDERED: CLORAZEPATE 7.5 MG TABLET PO PRN (20:10)
[2018-07-06] MEDS ORDERED: ACETAMINOPHEN 500 MG TABLET PO PRN (20:10)
[2018-07-06] MEDS ORDERED: MAGNESIUM HYDROXIDE SUSP 30 ML UDCUP PO PRN (22:30)
[2018-07-06 22:32] LABS: Band Neutrophils 2 % (0-10); Lymphocytes 80 % (20-55); Segmented Neutrophils 12 % (50-85)
[2018-07-06 22:34] LABS: Hypochromasia 1+; Platelet Estimate Adequate
[2018-07-06 22:37] LABS: Polychromasia Few; Tear Drop Cells Few; Total Cells Counted 100
[2018-07-06] MEDS: WARFARIN 4 MG TABLET PO SCH ×2 (22:43→22:49)
[2018-07-06] MEDS: FLECAINIDE 50 MG TABLET PO SCH (22:43)
[2018-07-06] MEDS: TEMAZEPAM 15 MG CAPSULE PO PRN (22:43)
[2018-07-06] MEDS: WARFARIN 3 MG TABLET PO SCH (22:43)
[2018-07-07 06:34] LABS: Hematocrit 24.7 VOL% (42.0-52.0); Hemoglobin 8.3 GM/DL (14.0-18.0); Immature Granulocytes % 15.5 %; Immature Granulocytes Absolute 0.11 #; Lymphocytes # 0.2 10*3/uL (1.4-4.0); Lymphocytes % 32.4 % (21.2-54.2); Mean Corpuscular HGB Conc 33.6 GM/DL (32-36); Mean Corpuscular Hemoglobin 34 PG (27-34); Mean Platelet Volume 9.5 FL (9.6-12.0); Monocytes # 0.1 10*3/uL (0.11-0.8); Monocytes % 9.9 % (1.7-12.7); Neutrophils # 0.3 10*3/uL (1.4-7.4); Neutrophils % 42.2 % (38.7-73.9); Platelet Count 93 T/CUMM (130-400); Red Blood Count 2.47 MC/CUMM (3.8-5.5); Red Cell Distribution Width 19.9 % (9.3-17.3)
[2018-07-07 06:36] LABS: White Blood Count 0.7 T/CUMM (4-12)
[2018-07-07 06:49] LABS: INR 2.3
[2018-07-07 06:50] LABS: PT Patient Result 23.4 SECS; Partial Thromboplastin Time 45.1 SECS (0-40)
[2018-07-07 06:57] LABS: Band Neutrophils 5 % (0-10); Lymphocytes 44 % (20-55); Nucleated Red Blood Cells 2 (0-5); Segmented Neutrophils 39 % (50-85); Total Cells Counted 100
[2018-07-07 06:58] LABS: Atypical Lymphocytes Few; Hypochromasia 1+; Ovalocytes Slight; Platelet Estimate Decreased
[2018-07-07 07:03] LABS: Calcium 8.1 MG/DL (8.5-10.1); Osmolality,Calculated 278.8 MOS/KG (273-304); Potassium 4.4 MMOL/L (3.5-5.1)
[2018-07-07] MEDS ORDERED: SODIUM PHOSPHATE ENEMA 133 ML BOTTLE RECTAL PRN (08:08)
[2018-07-07] MEDS ORDERED: SODIUM PHOSPHATE ENEMA 133 ML BOTTLE RECTAL ONE (08:08)
[2018-07-07] MEDS ORDERED: MAGNESIUM CITRATE 300 ML BOTTLE PO ONE (08:10)
[2018-07-07] MEDS ORDERED: MAGNESIUM CITRATE 300 ML BOTTLE PO PRN (08:10)
[2018-07-07] MEDS ORDERED: INFLUENZA VIRUS VACCINE 0.5 ML SYRINGE IM ONE (09:00)
[2018-07-07] MEDS: PANTOPRAZOLE 40 MG TABLET PO SCH (09:15)
[2018-07-07] MEDS: FLECAINIDE 50 MG TABLET PO SCH ×2 (09:15→20:41)
[2018-07-07] MEDS: VANCOMYCIN INJ 1,000 MG in SODIUM CHLORIDE 0.9% 250 ML IV SCH ×2 (09:19→20:42)
[2018-07-07] MEDS ORDERED: DEXTROSE 5% 1,000 ML IV SCH (09:30)
[2018-07-07] MEDS: amLODIPine 2.5 MG TABLET PO SCH (10:31)
[2018-07-07] MEDS: SODIUM CHLORIDE 0.9% IV SCH (12:41)
[2018-07-07] MEDS: DECITABINE IV SCH (12:41)
[2018-07-07] MEDS: WARFARIN 4 MG TABLET PO SCH (17:22)
[2018-07-07] MEDS: WARFARIN 3 MG TABLET PO SCH (18:56)
[2018-07-07] MEDS: LEVOFLOXACIN INJ 750 MG in PREMIX 1 EACH IV SCH (22:21)
[2018-07-08] MEDS: TEMAZEPAM 15 MG CAPSULE PO PRN ×2 (01:28→21:10)
[2018-07-08 03:15] LABS: Hematocrit 22.4 VOL% (42.0-52.0); Hemoglobin 7.4 GM/DL (14.0-18.0); Immature Granulocytes % 11.5 %; Immature Granulocytes Absolute 0.12 #; Lymphocytes # 0.6 10*3/uL (1.4-4.0); Lymphocytes % 56.7 % (21.2-54.2); Mean Corpuscular Hemoglobin 33 PG (27-34); Mean Corpuscular Volume 100.9 FL (87-102); Mean Platelet Volume 9.8 FL (9.6-12.0); Monocytes # 0.1 10*3/uL (0.11-0.8); Monocytes % 8.7 % (1.7-12.7); Neutrophils # 0.2 10*3/uL (1.4-7.4); Neutrophils % 23.1 % (38.7-73.9); Platelet Count 85 T/CUMM (130-400); Red Blood Count 2.22 MC/CUMM (3.8-5.5); Red Cell Distribution Width 20.2 % (9.3-17.3)
[2018-07-08 03:34] LABS: Calcium 7.6 MG/DL (8.5-10.1); Osmolality,Calculated 281.4 MOS/KG (273-304); Potassium 4.1 MMOL/L (3.5-5.1)
[2018-07-08 03:46] LABS: Band Neutrophils 6 % (0-10); Lymphocytes 68 % (20-55); Platelet Estimate Decreased; Segmented Neutrophils 23 % (50-85); Total Cells Counted 100
[2018-07-08 03:47] LABS: Polychromasia Few
[2018-07-08] MEDS ORDERED: SODIUM CHLORIDE 0.9% 1,000 ML IV PRN ×2 (08:17→08:35)
[2018-07-08] MEDS: FLECAINIDE 50 MG TABLET PO SCH ×2 (09:22→21:26)
[2018-07-08] MEDS: PANTOPRAZOLE 40 MG TABLET PO SCH (09:22)
[2018-07-08] MEDS: DECITABINE IV SCH (14:58)
[2018-07-08] MEDS: SODIUM CHLORIDE 0.9% IV SCH (14:58)
[2018-07-08] MEDS: WARFARIN 4 MG TABLET PO SCH (21:10)
[2018-07-08] MEDS: WARFARIN 3 MG TABLET PO SCH (21:10)
[2018-07-08] MEDS: LEVOFLOXACIN INJ 750 MG in PREMIX 1 EACH IV SCH (21:11)
[2018-07-09 06:37] LABS: Hematocrit 31.2 VOL% (42.0-52.0); Immature Granulocytes % 7.8 %; Immature Granulocytes Absolute 0.08 #; Lymphocytes # 0.6 10*3/uL (1.4-4.0); Lymphocytes % 58.8 % (21.2-54.2); Mean Corpuscular Hemoglobin 33 PG (27-34); Mean Corpuscular Volume 96.9 FL (87-102); Mean Platelet Volume 8.4 FL (9.6-12.0); Monocytes # 0.1 10*3/uL (0.11-0.8); Monocytes % 4.9 % (1.7-12.7); Neutrophils # 0.3 10*3/uL (1.4-7.4); Neutrophils % 28.5 % (38.7-73.9); Platelet Count 89 T/CUMM (130-400); Red Blood Count 3.22 MC/CUMM (3.8-5.5); Red Cell Distribution Width 18.9 % (9.3-17.3)
[2018-07-09 06:38] LABS: Hemoglobin 10.6 GM/DL (14.0-18.0)
[2018-07-09 06:55] LABS: INR 2.9
[2018-07-09 06:56] LABS: PT Patient Result 29.1 SECS
[2018-07-09 07:02] LABS: Band Neutrophils 1 % (0-10); Eosinophils 1 % (0-10); Lymphocytes 62 % (20-55); Osmolality,Calculated 272.8 MOS/KG (273-304); Platelet Estimate Decreased; Segmented Neutrophils 31 % (50-85); Total Cells Counted 100
[2018-07-09 07:03] LABS: Atypical Lymphocytes Few; Hypochromasia 1+; Ovalocytes Slight
[2018-07-09] MEDS: PANTOPRAZOLE 40 MG TABLET PO SCH (09:23)
[2018-07-09] MEDS: amLODIPine 2.5 MG TABLET PO SCH (09:23)
[2018-07-09] MEDS: FLECAINIDE 50 MG TABLET PO SCH (09:23)
[2018-07-09] MEDS: SODIUM CHLORIDE 0.9% IV SCH (11:16)
[2018-07-09] MEDS: DECITABINE IV SCH (11:16)
[2018-07-09 13:34] VITALS: BP 161/72
== END 2018-07-09 13:42 | disposition home or self-care (01) | DRG 809 ==
LOC: N.ED 17:51 → N.EDINP 20:09 → N.4E 21:02
PROVIDERS: ADMIT Family Medicine; ATTEND Family Medicine

== ENCOUNTER 2018-07-22 00:59 | Inpatient (IN) ==
[2018-07-22] MEDS ORDERED: SODIUM CHLORIDE 0.9% 1,000 ML IV STA ×2 (01:35→03:09)
[2018-07-22 02:29] LABS: Apearance,Urine CLEAR (Clear); Bilirubin,Urine Negative (Negative); Blood, Urine Negative (Negative); Glucose,Urine (UA) Negative (Negative); Ketones,Urine Negative (Negative); Nitrite,Urine Negative (Negative); Protein,Urine Negative; Urine Color Straw (Yellow); Urine Specific Gravity 1.005 (1.001-1.035); Urine Urobilinogen < 2.0 EU/DL (0.2-1.0); WBC,Urine 1 /HPF (0-6)
[2018-07-22 02:33] LABS: Hematocrit 23.3 VOL% (42.0-52.0); Hemoglobin 8.2 GM/DL (14.0-18.0); Immature Granulocytes % 1.4 %; Immature Granulocytes Absolute 0.01 #; Lymphocytes # 0.4 10*3/uL (1.4-4.0); Lymphocytes % 58.3 % (21.2-54.2); Mean Corpuscular HGB Conc 35.2 GM/DL (32-36); Mean Corpuscular Hemoglobin 33 PG (27-34); Mean Platelet Volume 12.4 FL (9.6-12.0); Monocytes # 0.2 10*3/uL (0.11-0.8); Monocytes % 30.6 % (1.7-12.7); Neutrophils # 0.1 10*3/uL (1.4-7.4); Neutrophils % 9.7 % (38.7-73.9); Red Blood Count 2.48 MC/CUMM (3.8-5.5); Red Cell Distribution Width 17.3 % (9.3-17.3)
[2018-07-22 02:52] LABS: Platelet Count 30 T/CUMM (130-400); White Blood Count 0.7 T/CUMM (4-12)
[2018-07-22 02:54] LABS: Albumin 2.8 G/DL (3.4-5.0); Bilirubin,Total 0.8 MG/DL (0.2-1.0); Calcium 7.8 MG/DL (8.5-10.1); Osmolality,Calculated 263.5 MOS/KG (273-304); Potassium 3.4 MMOL/L (3.5-5.1); Total Protein 6.1 G/DL (6.4-8.3)
[2018-07-22] MEDS ORDERED: VANCOMYCIN INJ 1,000 MG in SODIUM CHLORIDE 0.9% 250 ML IV STA (03:10)
[2018-07-22] MEDS ORDERED: MEROPENEM 1,000 MG in SODIUM CHLORIDE 0.9% 100 ML IV STA (03:10)
[2018-07-22] MEDS ORDERED: LACTULOSE 20 GM/30 ML UDCUP PO PRN (03:13)
[2018-07-22] MEDS ORDERED: guaiFENesin 200 MG/10 ML UDCUP PO PRN (03:13)
[2018-07-22] MEDS ORDERED: chlorproMAZINE INJ 25 MG in SODIUM CHLORIDE 0.9% 100 ML IV PRN (03:13)
[2018-07-22] MEDS ORDERED: traMADol 50 MG TABLET PO PRN (03:13)
[2018-07-22] MEDS ORDERED: ALPRAZolam 0.25 MG TABLET PO PRN (03:13)
[2018-07-22] MEDS ORDERED: BENZTROPINE 2 MG/2 ML AMP IV PRN (03:13)
[2018-07-22] MEDS ORDERED: chlorproMAZINE 25 MG TABLET PO PRN (03:13)
[2018-07-22] MEDS ORDERED: chlorproMAZINE INJ 50 MG in SODIUM CHLORIDE 0.9% 100 ML IV PRN (03:13)
[2018-07-22] MEDS ORDERED: PROMETHAZINE INJ 25 MG in SODIUM CHLORIDE 0.9% 50 ML IV PRN (03:13)
[2018-07-22] MEDS ORDERED: ONDANSETRON 4 MG/2 ML VIAL IV PRN (03:13)
[2018-07-22] MEDS ORDERED: MYLANTA/LIDO VISC 2:1 300 ML BOTTLE SWISH/SPIT PRN (03:13)
[2018-07-22] MEDS ORDERED: MYLANTA/LIDO VISC 2:1 300 ML BOTTLE SWISH/SWAL PRN (03:13)
[2018-07-22] MEDS ORDERED: diphenhydrAMINE CAP 25 MG CAPSULE PO PRN (03:13)
[2018-07-22] MEDS ORDERED: ALUMINUM/MAGNES/SIMETH MAX STR 30 ML UDCUP PO PRN (03:13)
[2018-07-22] MEDS ORDERED: LOPERAMIDE 2 MG CAPSULE PO PRN ×2 (03:13)
[2018-07-22] MEDS ORDERED: DEXTROSE 50% 25 GM/50 ML VIAL IV PRN (03:18)
[2018-07-22] MEDS ORDERED: GLUCAGON 1 MG VIAL IM PRN (03:18)
[2018-07-22 03:50] LABS: Anisocytosis 1+; Band Neutrophils 4 % (0-10); Lymphocytes 40 % (20-55); Macrocytosis 1+; Metamyelocytes 20 %; Myelocytes 8 %; Nucleated Red Blood Cells 1 (0-5); Platelet Estimate Decreased; Segmented Neutrophils 4 % (50-85); Total Cells Counted 100
[2018-07-22] MEDS: DEXTROSE 5% NACL 0.9% 1,000 ML IV SCH ×2 (05:32→20:00)
[2018-07-22 05:55] LABS: Immature Granulocytes % 4.4 %; Immature Granulocytes Absolute 0.04 #; Lymphocytes # 0.6 10*3/uL (1.4-4.0); Mean Corpuscular HGB Conc 34.6 GM/DL (32-36); Mean Corpuscular Hemoglobin 33 PG (27-34); Mean Corpuscular Volume 95.2 FL (87-102); Mean Platelet Volume 10.6 FL (9.6-12.0); Monocytes # 0.2 10*3/uL (0.11-0.8); Monocytes % 20.9 % (1.7-12.7); Neutrophils # 0.1 10*3/uL (1.4-7.4); Neutrophils % 7.7 % (38.7-73.9); Red Blood Count 2.73 MC/CUMM (3.8-5.5); Red Cell Distribution Width 17.3 % (9.3-17.3)
[2018-07-22 06:10] LABS: White Blood Count 0.9 T/CUMM (4-12)
[2018-07-22 06:11] LABS: Platelet Count 35 T/CUMM (130-400)
[2018-07-22 06:12] LABS: Albumin 2.8 G/DL (3.4-5.0); Calcium 7.9 MG/DL (8.5-10.1); Osmolality,Calculated 277.4 MOS/KG (273-304); Potassium 3.6 MMOL/L (3.5-5.1); Total Protein 6.3 G/DL (6.4-8.3); Uric Acid 4.3 MG/DL (3.5-7.2)
[2018-07-22 06:25] LABS: Lymphocytes 38 % (20-55); Platelet Estimate Decreased; Polychromasia Few; Segmented Neutrophils 15 % (50-85); Total Cells Counted 99
[2018-07-22] MEDS ORDERED: PNEUMOCOCCAL VACCINE (23 VALENT) 0.5 ML VIAL IM ONE (08:57)
[2018-07-22 09:23] LABS: INR 1.6; PT Patient Result 16.8 SECS
[2018-07-22] MEDS: MEROPENEM 1,000 MG in SODIUM CHLORIDE 0.9% 100 ML IV SCH ×2 (11:54→19:01)
[2018-07-22] MEDS: PANTOPRAZOLE 40 MG TABLET PO SCH (11:55)
[2018-07-22] MEDS: FLECAINIDE 50 MG TABLET PO SCH ×2 (11:55→21:20)
[2018-07-22] MEDS: ACETAMINOPHEN 325 MG TABLET PO PRN ×2 (11:55→16:56)
[2018-07-22] MEDS ORDERED: MORPHINE 4 MG/1 ML VIAL IV PRN (17:47)
[2018-07-22] MEDS: KETOROLAC 15 MG/1 ML VIAL IV PRN (19:02)
[2018-07-22] MEDS: VANCOMYCIN INJ 1,000 MG in SODIUM CHLORIDE 0.9% 250 ML IV SCH (19:59)
[2018-07-22] MEDS: VORICONAZOLE INJ 400 MG in SODIUM CHLORIDE 0.9% 100 ML IV SCH (21:29)
[2018-07-22] MEDS: TEMAZEPAM 7.5 MG CAPSULE PO PRN (22:07)
[2018-07-23] MEDS: MEROPENEM 1,000 MG in SODIUM CHLORIDE 0.9% 100 ML IV SCH ×3 (01:21→19:59)
[2018-07-23] MEDS: KETOROLAC 15 MG/1 ML VIAL IV PRN ×2 (02:45→08:43)
[2018-07-23 05:46] LABS: INR 1.4; PT Patient Result 14.9 SECS
[2018-07-23 06:06] LABS: Calcium 7.3 MG/DL (8.5-10.1); Osmolality,Calculated 272.8 MOS/KG (273-304); Potassium 3.3 MMOL/L (3.5-5.1)
[2018-07-23] MEDS: VANCOMYCIN INJ 1,000 MG in SODIUM CHLORIDE 0.9% 250 ML IV SCH ×2 (06:07→23:16)
[2018-07-23 06:43] LABS: Hematocrit 20.2 VOL% (42.0-52.0); Immature Granulocytes % 4.3 %; Immature Granulocytes Absolute 0.03 #; Lymphocytes # 0.5 10*3/uL (1.4-4.0); Lymphocytes % 68.6 % (21.2-54.2); Mean Corpuscular HGB Conc 35.1 GM/DL (32-36); Mean Corpuscular Hemoglobin 34 PG (27-34); Mean Corpuscular Volume 95.7 FL (87-102); Mean Platelet Volume 10.1 FL (9.6-12.0); Monocytes # 0.2 10*3/uL (0.11-0.8); Monocytes % 21.4 % (1.7-12.7); Neutrophils % 5.7 % (38.7-73.9); Red Cell Distribution Width 17.3 % (9.3-17.3)
[2018-07-23 06:48] LABS: Platelet Count 32 T/CUMM (130-400); Red Blood Count 2.11 MC/CUMM (3.8-5.5); White Blood Count 0.7 T/CUMM (4-12)
[2018-07-23 06:49] LABS: Hemoglobin 7.1 GM/DL (14.0-18.0)
[2018-07-23 07:09] LABS: Atypical Lymphocytes Few; Hypochromasia 1+; Lymphocytes 75 % (20-55); Segmented Neutrophils 10 % (50-85); Total Cells Counted 100
[2018-07-23 07:10] LABS: Anisocytosis 1+; Macrocytosis 1+; Ovalocytes Slight; Platelet Estimate Decreased
[2018-07-23] MEDS ORDERED: DEXTROMETHORPHAN ER 6 MG/ML 90 ML/BOTTLE PO PRN (07:48)
[2018-07-23] MEDS: VORICONAZOLE INJ 400 MG in SODIUM CHLORIDE 0.9% 100 ML IV SCH (08:43)
[2018-07-23] MEDS: FLECAINIDE 50 MG TABLET PO SCH ×2 (08:43→22:09)
[2018-07-23] MEDS: PANTOPRAZOLE 40 MG TABLET PO SCH (08:43)
[2018-07-23] MEDS ORDERED: SODIUM CHLORIDE 0.9% 1,000 ML IV PRN (08:47)
[2018-07-23] MEDS: MAGNESIUM HYDROXIDE SUSP 30 ML UDCUP PO PRN (09:40)
[2018-07-23] MEDS: DEXTROSE 5% NACL 0.9% 1,000 ML IV SCH (16:40)
[2018-07-23] MEDS: WARFARIN 3 MG TABLET PO SCH (20:03)
[2018-07-23] MEDS: MICAFUNGIN 100 MG in SODIUM CHLORIDE 0.9% 100 ML IV SCH (22:13)
[2018-07-23] MEDS: TEMAZEPAM 7.5 MG CAPSULE PO PRN (23:20)
[2018-07-24] MEDS: KETOROLAC 15 MG/1 ML VIAL IV PRN ×2 (00:54→08:53)
[2018-07-24] MEDS: MEROPENEM 1,000 MG in SODIUM CHLORIDE 0.9% 100 ML IV SCH ×3 (03:56→19:58)
[2018-07-24 05:37] LABS: INR 1.3; PT Patient Result 13.1 SECS
[2018-07-24 08:44] LABS: Hematocrit 23.6 VOL% (42.0-52.0); Hemoglobin 8.2 GM/DL (14.0-18.0); Immature Granulocytes % 4.5 %; Immature Granulocytes Absolute 0.03 #; Lymphocytes # 0.5 10*3/uL (1.4-4.0); Lymphocytes % 68.7 % (21.2-54.2); Mean Corpuscular HGB Conc 34.7 GM/DL (32-36); Mean Corpuscular Hemoglobin 32 PG (27-34); Mean Corpuscular Volume 91.5 FL (87-102); Mean Platelet Volume 10.6 FL (9.6-12.0); Monocytes # 0.1 10*3/uL (0.11-0.8); Monocytes % 19.4 % (1.7-12.7); Neutrophils # 0.1 10*3/uL (1.4-7.4); Neutrophils % 7.4 % (38.7-73.9); Red Blood Count 2.58 MC/CUMM (3.8-5.5); Red Cell Distribution Width 17.3 % (9.3-17.3)
[2018-07-24 08:49] LABS: Platelet Count 38 T/CUMM (130-400); White Blood Count 0.7 T/CUMM (4-12)
[2018-07-24] MEDS: GANCICLOVIR 400 MG in SODIUM CHLORIDE 0.9% 100 ML IV SCH ×2 (08:53→20:34)
[2018-07-24] MEDS: PANTOPRAZOLE 40 MG TABLET PO SCH (08:54)
[2018-07-24] MEDS: FLECAINIDE 50 MG TABLET PO SCH ×2 (08:54→20:34)
[2018-07-24 09:12] LABS: Anisocytosis 1+; Lymphocytes 56 % (20-55); Platelet Estimate Decreased; Segmented Neutrophils 4 % (50-85); Total Cells Counted 100
[2018-07-24] MEDS: DEXT 5% NACL 0.9% KCL 20 MEQ 20 MEQ/1,000 ML BAG IV SCH (11:17)
[2018-07-24] MEDS: VANCOMYCIN INJ 1,000 MG in SODIUM CHLORIDE 0.9% 250 ML IV SCH (11:23)
[2018-07-24] MEDS: DEXTROSE 5% NACL 0.9% 1,000 ML IV SCH (12:19)
[2018-07-24] MEDS: WARFARIN 3 MG TABLET PO SCH (17:32)
[2018-07-24] MEDS: MICAFUNGIN 100 MG in SODIUM CHLORIDE 0.9% 100 ML IV SCH (21:38)
[2018-07-24] MEDS: TEMAZEPAM 7.5 MG CAPSULE PO PRN (22:28)
[2018-07-24] MEDS: VANCOMYCIN INJ 1,250 MG in SODIUM CHLORIDE 0.9% 250 ML IV SCH (23:41)
[2018-07-25 02:21] LABS: INR 1.2
[2018-07-25] MEDS: MEROPENEM 1,000 MG in SODIUM CHLORIDE 0.9% 100 ML IV SCH ×3 (03:55→19:44)
[2018-07-25 08:48] LABS: Albumin 2.3 G/DL (3.4-5.0); Bilirubin,Total 0.7 MG/DL (0.2-1.0); Calcium 7.1 MG/DL (8.5-10.1); Osmolality,Calculated 276.4 MOS/KG (273-304); Potassium 3.5 MMOL/L (3.5-5.1); Total Protein 4.9 G/DL (6.4-8.3)
[2018-07-25] MEDS: GANCICLOVIR 400 MG in SODIUM CHLORIDE 0.9% 100 ML IV SCH ×2 (08:58→20:26)
[2018-07-25] MEDS: PANTOPRAZOLE 40 MG TABLET PO SCH (09:58)
[2018-07-25] MEDS: FLECAINIDE 50 MG TABLET PO SCH ×2 (09:58→20:25)
[2018-07-25] MEDS: DEXT 5% NACL 0.9% KCL 20 MEQ 20 MEQ/1,000 ML BAG IV SCH (10:02)
[2018-07-25 10:33] LABS: Hematocrit 26.9 VOL% (42.0-52.0); Hemoglobin 9.1 GM/DL (14.0-18.0); Immature Granulocytes % 4.2 %; Immature Granulocytes Absolute 0.03 #; Lymphocytes # 0.5 10*3/uL (1.4-4.0); Lymphocytes % 66.7 % (21.2-54.2); Mean Corpuscular HGB Conc 33.8 GM/DL (32-36); Mean Corpuscular Hemoglobin 32 PG (27-34); Mean Corpuscular Volume 93.4 FL (87-102); Mean Platelet Volume 10.3 FL (9.6-12.0); Monocytes # 0.1 10*3/uL (0.11-0.8); Monocytes % 19.4 % (1.7-12.7); Neutrophils # 0.1 10*3/uL (1.4-7.4); Neutrophils % 9.7 % (38.7-73.9); Platelet Count 61 T/CUMM (130-400); Red Blood Count 2.88 MC/CUMM (3.8-5.5)
[2018-07-25 10:50] LABS: White Blood Count 0.7 T/CUMM (4-12)
[2018-07-25 11:06] LABS: Band Neutrophils 2 % (0-10); Lymphocytes 84 % (20-55); Nucleated Red Blood Cells 1 (0-5); Platelet Estimate Decreased; Segmented Neutrophils 2 % (50-85); Total Cells Counted 100
[2018-07-25 11:07] LABS: Anisocytosis 1+; Atypical Lymphocytes Few
[2018-07-25] MEDS: VANCOMYCIN INJ 1,250 MG in SODIUM CHLORIDE 0.9% 250 ML IV SCH ×2 (11:14→23:38)
[2018-07-25] MEDS: WARFARIN 3 MG TABLET PO SCH (19:44)
[2018-07-25] MEDS: TEMAZEPAM 7.5 MG CAPSULE PO PRN (21:55)
[2018-07-25] MEDS: MICAFUNGIN 100 MG in SODIUM CHLORIDE 0.9% 100 ML IV SCH (21:55)
[2018-07-26] MEDS: DEXT 5% NACL 0.9% KCL 20 MEQ 20 MEQ/1,000 ML BAG IV SCH ×2 (02:53→14:36)
[2018-07-26] MEDS: MEROPENEM 1,000 MG in SODIUM CHLORIDE 0.9% 100 ML IV SCH ×3 (03:53→20:35)
[2018-07-26 05:32] LABS: Hematocrit 25.8 VOL% (42.0-52.0); Hemoglobin 8.6 GM/DL (14.0-18.0); Immature Granulocytes % 1.4 %; Immature Granulocytes Absolute 0.01 #; Lymphocytes # 0.5 10*3/uL (1.4-4.0); Lymphocytes % 68.6 % (21.2-54.2); Mean Corpuscular HGB Conc 33.3 GM/DL (32-36); Mean Corpuscular Hemoglobin 31 PG (27-34); Mean Corpuscular Volume 92.8 FL (87-102); Mean Platelet Volume 10.1 FL (9.6-12.0); Monocytes # 0.1 10*3/uL (0.11-0.8); Neutrophils # 0.1 10*3/uL (1.4-7.4); Platelet Count 64 T/CUMM (130-400); Red Blood Count 2.78 MC/CUMM (3.8-5.5); Red Cell Distribution Width 17.3 % (9.3-17.3)
[2018-07-26 05:36] LABS: INR 1.3; PT Patient Result 13.4 SECS
[2018-07-26 05:47] LABS: White Blood Count 0.7 T/CUMM (4-12)
[2018-07-26 06:00] LABS: Albumin 2.2 G/DL (3.4-5.0); Bilirubin,Total 1.2 MG/DL (0.2-1.0); Calcium 7.2 MG/DL (8.5-10.1); Osmolality,Calculated 270.8 MOS/KG (273-304); Potassium 3.2 MMOL/L (3.5-5.1); Total Protein 5.3 G/DL (6.4-8.3)
[2018-07-26 06:44] LABS: Hypochromasia 1+; Lymphocytes 80 % (20-55); Ovalocytes Slight; Platelet Estimate Decreased; Segmented Neutrophils 10 % (50-85); Total Cells Counted 100
[2018-07-26 06:45] LABS: Atypical Lymphocytes Few
[2018-07-26] MEDS ORDERED: POTASSIUM CHLORIDE 20 MEQ TABLET PO ONE ×2 (08:22→09:40)
[2018-07-26] MEDS: FLECAINIDE 50 MG TABLET PO SCH ×2 (08:46→20:33)
[2018-07-26] MEDS: GANCICLOVIR 400 MG in SODIUM CHLORIDE 0.9% 100 ML IV SCH (08:47)
[2018-07-26] MEDS: PANTOPRAZOLE 40 MG TABLET PO SCH (12:06)
[2018-07-26] MEDS: VANCOMYCIN INJ 1,250 MG in SODIUM CHLORIDE 0.9% 250 ML IV SCH (12:07)
[2018-07-26] MEDS: BENZONATATE 100 MG CAPSULE PO SCH ×2 (14:35→20:34)
[2018-07-26] MEDS ORDERED: SODIUM CHLORIDE 0.9% 1,000 ML IV PRN (19:22)
[2018-07-26] MEDS: WARFARIN 3 MG TABLET PO SCH (20:19)
[2018-07-26] MEDS: MICAFUNGIN 100 MG in SODIUM CHLORIDE 0.9% 100 ML IV SCH (22:49)
[2018-07-26] MEDS: TEMAZEPAM 7.5 MG CAPSULE PO PRN (22:51)
[2018-07-27] MEDS: VANCOMYCIN INJ 1,500 MG in SODIUM CHLORIDE 0.9% 500 ML IV SCH ×2 (03:01→14:23)
[2018-07-27 05:33] LABS: Hemoglobin 8.3 GM/DL (14.0-18.0); Immature Granulocytes % 3.3 %; Immature Granulocytes Absolute 0.02 #; Lymphocytes # 0.4 10*3/uL (1.4-4.0); Lymphocytes % 68.3 % (21.2-54.2); Mean Corpuscular HGB Conc 33.2 GM/DL (32-36); Mean Corpuscular Hemoglobin 31 PG (27-34); Mean Corpuscular Volume 93.3 FL (87-102); Mean Platelet Volume 9.8 FL (9.6-12.0); Monocytes # 0.1 10*3/uL (0.11-0.8); Monocytes % 18.3 % (1.7-12.7); Neutrophils # 0.1 10*3/uL (1.4-7.4); Neutrophils % 10.1 % (38.7-73.9); Platelet Count 77 T/CUMM (130-400); Red Blood Count 2.68 MC/CUMM (3.8-5.5); Red Cell Distribution Width 17.2 % (9.3-17.3)
[2018-07-27 05:38] LABS: White Blood Count 0.6 T/CUMM (4-12)
[2018-07-27 05:42] LABS: INR 1.2; Partial Thromboplastin Time 35.9 SECS (0-40)
[2018-07-27 05:50] LABS: Lymphocytes 80 % (20-55); Total Cells Counted 100
[2018-07-27 05:51] LABS: Atypical Lymphocytes Few; Hypochromasia 1+; Ovalocytes Slight; Platelet Estimate Decreased
[2018-07-27] MEDS: MEROPENEM 1,000 MG in SODIUM CHLORIDE 0.9% 100 ML IV SCH ×3 (06:02→21:15)
[2018-07-27] MEDS ORDERED: diphenhydrAMINE CAP 50 MG CAPSULE PO ONE (08:00)
[2018-07-27] MEDS ORDERED: BENZONATATE 100 MG CAPSULE PO ONE (08:00)
[2018-07-27] MEDS ORDERED: LIDOCAINE 2% 20 ML VIAL RESP TX ONE (08:30)
[2018-07-27] MEDS ORDERED: LIDOCAINE 1% 20 ML VIAL MISC INJ ONE (08:30)
[2018-07-27] MEDS ORDERED: MIDAZOLAM 2 MG/2 ML VIAL IV ONE (08:30)
[2018-07-27] MEDS ORDERED: LIDOCAINE 2% VISCOUS 100 ML BOTTLE SWISH/SPIT ONE (08:30)
[2018-07-27] MEDS: FLECAINIDE 50 MG TABLET PO SCH ×2 (10:05→20:34)
[2018-07-27 10:47] LABS: INR 1.3; PT Patient Result 13.2 SECS
[2018-07-27] MEDS ORDERED: EPINEPHrine 1 MG/ML VIAL ET ONE (10:58)
[2018-07-27] MEDS ORDERED: MIDAZOLAM 2 MG/2 ML VIAL ONE (11:28)
[2018-07-27] MEDS ORDERED: EPINEPHrine 1 MG/ML VIAL ONE (11:30)
[2018-07-27] MEDS: BENZONATATE 100 MG CAPSULE PO SCH ×3 (13:58→20:34)
[2018-07-27] MEDS: PANTOPRAZOLE 40 MG TABLET PO SCH (13:58)
[2018-07-27] MEDS: WARFARIN 5 MG TABLET PO SCH (17:51)
[2018-07-27] MEDS: TEMAZEPAM 7.5 MG CAPSULE PO PRN (21:16)
[2018-07-28] MEDS: VANCOMYCIN INJ 1,500 MG in SODIUM CHLORIDE 0.9% 500 ML IV SCH ×2 (03:13→19:14)
[2018-07-28] MEDS: MEROPENEM 1,000 MG in SODIUM CHLORIDE 0.9% 100 ML IV SCH ×2 (05:44→14:40)
[2018-07-28 07:04] LABS: Calcium 7.6 MG/DL (8.5-10.1); Osmolality,Calculated 278.7 MOS/KG (273-304); Potassium 4.3 MMOL/L (3.5-5.1)
[2018-07-28 08:20] LABS: Hematocrit 23.5 VOL% (42.0-52.0); Immature Granulocytes % 1.6 %; Immature Granulocytes Absolute 0.01 #; Lymphocytes # 0.5 10*3/uL (1.4-4.0); Lymphocytes % 74.6 % (21.2-54.2); Mean Corpuscular Hemoglobin 32 PG (27-34); Mean Corpuscular Volume 92.9 FL (87-102); Monocytes # 0.1 10*3/uL (0.11-0.8); Monocytes % 12.7 % (1.7-12.7); Neutrophils # 0.1 10*3/uL (1.4-7.4); Neutrophils % 11.1 % (38.7-73.9); Platelet Count 85 T/CUMM (130-400); Red Blood Count 2.53 MC/CUMM (3.8-5.5); Red Cell Distribution Width 17.2 % (9.3-17.3)
[2018-07-28 08:26] LABS: INR 1.3; PT Patient Result 13.4 SECS; Partial Thromboplastin Time 34.6 SECS (0-40); White Blood Count 0.6 T/CUMM (4-12)
[2018-07-28 08:47] LABS: Lymphocytes 100 % (20-55); Total Cells Counted 100
[2018-07-28 08:48] LABS: Atypical Lymphocytes Few; Hypochromasia 1+; Platelet Estimate Decreased
[2018-07-28] MEDS: FLECAINIDE 50 MG TABLET PO SCH ×2 (10:36→20:51)
[2018-07-28] MEDS: PANTOPRAZOLE 40 MG TABLET PO SCH (10:36)
[2018-07-28] MEDS: BENZONATATE 100 MG CAPSULE PO SCH ×3 (10:36→20:51)
[2018-07-28] MEDS: MONTELUKAST 10 MG TABLET PO SCH ×2 (10:36→20:51)
[2018-07-28] MEDS: VORICONAZOLE IV SCH (16:42)
[2018-07-28] MEDS: SODIUM CHLORIDE 0.9% IV SCH (16:42)
[2018-07-28 18:31] LABS: TB2 Ag Minus Result 0.11 IU/mL
[2018-07-28] MEDS: WARFARIN 5 MG TABLET PO SCH (19:14)
[2018-07-28] MEDS: TEMAZEPAM 7.5 MG CAPSULE PO PRN (20:51)
[2018-07-28] MEDS: DEXT 5% NACL 0.9% KCL 20 MEQ 20 MEQ/1,000 ML BAG IV SCH (21:00)
[2018-07-28] MEDS: MAGNESIUM HYDROXIDE SUSP 30 ML UDCUP PO PRN (21:08)
[2018-07-29] MEDS: MEROPENEM 1,000 MG in SODIUM CHLORIDE 0.9% 100 ML IV SCH ×3 (01:08→18:50)
[2018-07-29] MEDS: VANCOMYCIN INJ 1,500 MG in SODIUM CHLORIDE 0.9% 500 ML IV SCH ×2 (03:51→15:30)
[2018-07-29] MEDS ORDERED: hydrALAZINE 20 MG/1 ML VIAL IV ONE (04:36)
[2018-07-29 05:10] LABS: Hemoglobin 8.5 GM/DL (14.0-18.0); Immature Granulocytes % 3.4 %; Immature Granulocytes Absolute 0.02 #; Lymphocytes # 0.5 10*3/uL (1.4-4.0); Lymphocytes % 76.3 % (21.2-54.2); Mean Corpuscular Hemoglobin 32 PG (27-34); Mean Corpuscular Volume 93.3 FL (87-102); Mean Platelet Volume 9.6 FL (9.6-12.0); Monocytes # 0.1 10*3/uL (0.11-0.8); Monocytes % 10.2 % (1.7-12.7); Neutrophils # 0.1 10*3/uL (1.4-7.4); Neutrophils % 10.1 % (38.7-73.9); Platelet Count 89 T/CUMM (130-400); Red Blood Count 2.68 MC/CUMM (3.8-5.5)
[2018-07-29 05:23] LABS: White Blood Count 0.6 T/CUMM (4-12)
[2018-07-29 05:28] LABS: Osmolality,Calculated 275.5 MOS/KG (273-304); Potassium 3.8 MMOL/L (3.5-5.1)
[2018-07-29 06:29] LABS: Hypochromasia 1+; Lymphocytes 100 % (20-55); Ovalocytes Slight; Platelet Estimate Decreased; Total Cells Counted 100
[2018-07-29] MEDS: VORICONAZOLE IV SCH (08:52)
[2018-07-29] MEDS: SODIUM CHLORIDE 0.9% IV SCH (08:52)
[2018-07-29] MEDS: PANTOPRAZOLE 40 MG TABLET PO SCH (09:00)
[2018-07-29] MEDS: BENZONATATE 100 MG CAPSULE PO SCH ×3 (09:00→20:52)
[2018-07-29] MEDS: MONTELUKAST 10 MG TABLET PO SCH ×2 (09:00→20:52)
[2018-07-29] MEDS: FLECAINIDE 50 MG TABLET PO SCH ×2 (09:00→20:52)
[2018-07-29] MEDS: DEXT 5% NACL 0.9% KCL 20 MEQ 20 MEQ/1,000 ML BAG IV SCH (10:51)
[2018-07-29] MEDS: WARFARIN 5 MG TABLET PO SCH (17:31)
[2018-07-29] MEDS: TEMAZEPAM 7.5 MG CAPSULE PO PRN (20:51)
[2018-07-29] MEDS: VORICONAZOLE 200 MG TABLET PO SCH (20:52)
[2018-07-30] MEDS: DEXT 5% NACL 0.9% KCL 20 MEQ 20 MEQ/1,000 ML BAG IV SCH (01:52)
[2018-07-30 06:59] LABS: Hematocrit 23.4 VOL% (42.0-52.0); Hemoglobin 7.9 GM/DL (14.0-18.0); Immature Granulocytes % 1.9 %; Immature Granulocytes Absolute 0.01 #; Lymphocytes # 0.4 10*3/uL (1.4-4.0); Lymphocytes % 80.8 % (21.2-54.2); Mean Corpuscular HGB Conc 33.8 GM/DL (32-36); Mean Corpuscular Hemoglobin 32 PG (27-34); Mean Platelet Volume 9.6 FL (9.6-12.0); Monocytes # 0.1 10*3/uL (0.11-0.8); Monocytes % 9.6 % (1.7-12.7); Neutrophils % 7.7 % (38.7-73.9); Red Blood Count 2.49 MC/CUMM (3.8-5.5)
[2018-07-30 07:00] LABS: White Blood Count 0.5 T/CUMM (4-12)
[2018-07-30 07:01] LABS: Platelet Count 75 T/CUMM (130-400)
[2018-07-30 07:23] LABS: Hypochromasia 1+; Lymphocytes 80 % (20-55); Ovalocytes Slight; Platelet Estimate Decreased; Total Cells Counted 100
[2018-07-30 07:24] LABS: Atypical Lymphocytes Few
[2018-07-30 07:29] LABS: Osmolality,Calculated 278.3 MOS/KG (273-304); Potassium 3.8 MMOL/L (3.5-5.1)
[2018-07-30] MEDS ORDERED: SODIUM CHLORIDE 0.9% 1,000 ML IV PRN (08:03)
[2018-07-30] MEDS: BENZONATATE 100 MG CAPSULE PO SCH ×3 (08:35→20:31)
[2018-07-30] MEDS: PANTOPRAZOLE 40 MG TABLET PO SCH (08:35)
[2018-07-30] MEDS: MONTELUKAST 10 MG TABLET PO SCH ×2 (08:36→20:31)
[2018-07-30] MEDS: FLECAINIDE 50 MG TABLET PO SCH ×2 (08:37→20:31)
[2018-07-30] MEDS: VORICONAZOLE 200 MG TABLET PO SCH ×2 (08:37→20:31)
[2018-07-30 09:13] LABS: INR 1.4; PT Patient Result 14.7 SECS
[2018-07-30] MEDS: WARFARIN 5 MG TABLET PO SCH (17:10)
[2018-07-31 04:47] LABS: Hematocrit 28.7 VOL% (42.0-52.0); Hemoglobin 9.8 GM/DL (14.0-18.0); Immature Granulocytes % 3.3 %; Immature Granulocytes Absolute 0.02 #; Lymphocytes # 0.5 10*3/uL (1.4-4.0); Lymphocytes % 80.3 % (21.2-54.2); Mean Corpuscular HGB Conc 34.1 GM/DL (32-36); Mean Corpuscular Hemoglobin 31 PG (27-34); Mean Corpuscular Volume 90.8 FL (87-102); Mean Platelet Volume 9.6 FL (9.6-12.0); Monocytes # 0.1 10*3/uL (0.11-0.8); Monocytes % 9.8 % (1.7-12.7); Neutrophils % 6.6 % (38.7-73.9); Platelet Count 77 T/CUMM (130-400); Red Blood Count 3.16 MC/CUMM (3.8-5.5); Red Cell Distribution Width 16.5 % (9.3-17.3)
[2018-07-31 05:04] LABS: White Blood Count 0.6 T/CUMM (4-12)
[2018-07-31 05:07] LABS: INR 1.5
[2018-07-31 05:12] LABS: Albumin 2.7 G/DL (3.4-5.0); Bilirubin,Total 1.2 MG/DL (0.2-1.0); Calcium 8.3 MG/DL (8.5-10.1); Osmolality,Calculated 276.4 MOS/KG (273-304); Potassium 3.9 MMOL/L (3.5-5.1); Total Protein 5.9 G/DL (6.4-8.3)
[2018-07-31 06:50] LABS: Lymphocytes 90 % (20-55); Total Cells Counted 100
[2018-07-31 06:51] LABS: Atypical Lymphocytes Few; Hypochromasia 1+; Microcytosis 1+
[2018-07-31 06:52] LABS: Anisocytosis 1+; Ovalocytes Slight; Platelet Estimate Decreased
[2018-07-31 08:02] VITALS: BP 156/67
[2018-07-31] MEDS: VORICONAZOLE 200 MG TABLET PO SCH (08:30)
[2018-07-31] MEDS: PANTOPRAZOLE 40 MG TABLET PO SCH (08:31)
[2018-07-31] MEDS: MONTELUKAST 10 MG TABLET PO SCH (08:31)
[2018-07-31] MEDS: BENZONATATE 100 MG CAPSULE PO SCH (08:31)
[2018-07-31] MEDS: FLECAINIDE 50 MG TABLET PO SCH (08:32)
== END 2018-07-31 09:05 | disposition home or self-care (01) | DRG 853 ==
LOC: N.ED 00:59 → N.EDINP 03:13 → N.4E 04:18
PROVIDERS: ADMIT Family Medicine; ATTEND Family Medicine
PROC: BRONCHB (2018-07-27 09:05)

== ENCOUNTER 2018-08-01 23:53 | Inpatient (IN) ==
[2018-08-02] MEDS ORDERED: SODIUM CHLORIDE 0.9% 1,000 ML IV STA (01:13)
[2018-08-02 01:51] LABS: Hematocrit 34.1 VOL% (42.0-52.0); Hemoglobin 11.6 GM/DL (14.0-18.0); Immature Granulocytes % 3.3 %; Immature Granulocytes Absolute 0.02 #; Lymphocytes # 0.5 10*3/uL (1.4-4.0); Lymphocytes % 78.3 % (21.2-54.2); Mean Corpuscular Hemoglobin 31 PG (27-34); Mean Corpuscular Volume 91.4 FL (87-102); Mean Platelet Volume 10.1 FL (9.6-12.0); Monocytes # 0.1 10*3/uL (0.11-0.8); Monocytes % 13.3 % (1.7-12.7); Neutrophils % 5.1 % (38.7-73.9); Red Blood Count 3.73 MC/CUMM (3.8-5.5); Red Cell Distribution Width 16.4 % (9.3-17.3)
[2018-08-02 01:52] LABS: Platelet Count 59 T/CUMM (130-400)
[2018-08-02 01:53] LABS: White Blood Count 0.6 T/CUMM (4-12)
[2018-08-02 01:57] LABS: INR 1.6; PT Patient Result 16.9 SECS
[2018-08-02 02:09] LABS: Calcium 8.1 MG/DL (8.5-10.1); Osmolality,Calculated 270.2 MOS/KG (273-304); Potassium 3.9 MMOL/L (3.5-5.1); Total Protein 6.7 G/DL (6.4-8.3)
[2018-08-02 02:19] LABS: Lymphocytes 84 % (20-55); Segmented Neutrophils 4 % (50-85)
[2018-08-02 02:20] LABS: Atypical Lymphocytes Few; Platelet Estimate Decreased; Reactive Lymphocytes 2+
[2018-08-02 02:21] LABS: Total Cells Counted 100
[2018-08-02 02:22] LABS: Lactic Acid 1.7 MMOL/L (0.4-2.0)
[2018-08-02 02:26] LABS: Apearance,Urine CLEAR (Clear); Bilirubin,Urine Negative (Negative); Blood, Urine Negative (Negative); Glucose,Urine (UA) Negative (Negative); Hyaline Casts,Urine 1 /LPF (0-3); Ketones,Urine Negative (Negative); Mucus,Urine Occasional /LPF (Occasional); Nitrite,Urine Negative (Negative); Protein,Urine Negative; RBC,Urine <1 /HPF (0-4); Urine Color Yellow (Yellow); Urine Specific Gravity 1.014 (1.001-1.035); Urine Urobilinogen < 2.0 EU/DL (0.2-1.0); WBC,Urine <1 /HPF (0-6)
[2018-08-02] MEDS ORDERED: MEROPENEM 1,000 MG in SODIUM CHLORIDE 0.9% 100 ML IV STA (03:16)
[2018-08-02] MEDS ORDERED: ACETAMINOPHEN 325 MG TABLET PO PRN (03:19)
[2018-08-02] MEDS ORDERED: IBUPROFEN 600 MG TABLET PO PRN (03:19)
[2018-08-02] MEDS ORDERED: ONDANSETRON 4 MG/2 ML VIAL IV PRN (03:19)
[2018-08-02] MEDS ORDERED: PROMETHAZINE 25 MG TABLET PO PRN (03:19)
[2018-08-02] MEDS ORDERED: ACETAMINOPHEN 500 MG TABLET ONE (05:05)
[2018-08-02] MEDS ORDERED: ACETAMINOPHEN 500 MG TABLET PO ONE (05:10)
[2018-08-02] MEDS: DEXTROSE 5% 1,000 ML IV SCH ×3 (05:30→18:07)
[2018-08-02 05:46] LABS: Hemoglobin 10.2 GM/DL (14.0-18.0); Immature Granulocytes % 3.5 %; Immature Granulocytes Absolute 0.03 #; Lymphocytes # 0.7 10*3/uL (1.4-4.0); Lymphocytes % 76.5 % (21.2-54.2); Mean Corpuscular Hemoglobin 31 PG (27-34); Mean Corpuscular Volume 89.8 FL (87-102); Mean Platelet Volume 10.3 FL (9.6-12.0); Monocytes # 0.1 10*3/uL (0.11-0.8); Monocytes % 14.1 % (1.7-12.7); Neutrophils # 0.1 10*3/uL (1.4-7.4); Neutrophils % 5.9 % (38.7-73.9); Platelet Count 65 T/CUMM (130-400); Red Blood Count 3.34 MC/CUMM (3.8-5.5); Red Cell Distribution Width 16.4 % (9.3-17.3)
[2018-08-02 05:52] LABS: White Blood Count 0.9 T/CUMM (4-12)
[2018-08-02 05:59] LABS: Albumin 2.9 G/DL (3.4-5.0); Bilirubin,Total 1.4 MG/DL (0.2-1.0); Calcium 8.2 MG/DL (8.5-10.1); Potassium 3.8 MMOL/L (3.5-5.1); Total Protein 6.5 G/DL (6.4-8.3)
[2018-08-02 06:04] LABS: Hypochromasia 1+; Lymphocytes 80 % (20-55); Ovalocytes Slight; Platelet Estimate Decreased; Segmented Neutrophils 4 % (50-85); Total Cells Counted 100
[2018-08-02 06:06] LABS: Atypical Lymphocytes Few
[2018-08-02] MEDS: PANTOPRAZOLE 40 MG TABLET PO SCH (09:40)
[2018-08-02] MEDS: VORICONAZOLE 200 MG TABLET PO SCH ×2 (09:40→20:22)
[2018-08-02] MEDS: WARFARIN 5 MG TABLET PO SCH (13:54)
[2018-08-02] MEDS: MEROPENEM 1,000 MG in SODIUM CHLORIDE 0.9% 100 ML IV SCH ×2 (13:58→20:24)
[2018-08-02] MEDS: amLODIPine 2.5 MG TABLET PO SCH (20:22)
[2018-08-02] MEDS: FLECAINIDE 50 MG TABLET PO SCH (20:22)
[2018-08-03] MEDS: MEROPENEM 1,000 MG in SODIUM CHLORIDE 0.9% 100 ML IV SCH ×2 (04:43→16:38)
[2018-08-03] MEDS: DEXTROSE 5% 1,000 ML IV SCH (04:44)
[2018-08-03 08:34] LABS: Hematocrit 29.1 VOL% (42.0-52.0); Lymphocytes # 0.4 10*3/uL (1.4-4.0); Lymphocytes % 79.2 % (21.2-54.2); Mean Corpuscular HGB Conc 34.4 GM/DL (32-36); Mean Corpuscular Hemoglobin 31 PG (27-34); Mean Corpuscular Volume 89.8 FL (87-102); Mean Platelet Volume 10.4 FL (9.6-12.0); Monocytes # 0.1 10*3/uL (0.11-0.8); Monocytes % 12.5 % (1.7-12.7); Neutrophils % 8.3 % (38.7-73.9); Platelet Count 62 T/CUMM (130-400); Red Blood Count 3.24 MC/CUMM (3.8-5.5)
[2018-08-03 08:36] LABS: White Blood Count 0.5 T/CUMM (4-12)
[2018-08-03 08:48] LABS: Albumin 2.6 G/DL (3.4-5.0); Bilirubin,Total 0.6 MG/DL (0.2-1.0); Osmolality,Calculated 276.7 MOS/KG (273-304); Potassium 3.6 MMOL/L (3.5-5.1); Total Protein 6.1 G/DL (6.4-8.3)
[2018-08-03 08:56] LABS: Lymphocytes 90 % (20-55); Total Cells Counted 100
[2018-08-03 08:57] LABS: Atypical Lymphocytes Few; Hypochromasia 1+; Microcytosis 1+; Ovalocytes Slight
[2018-08-03 08:58] LABS: Platelet Estimate Decreased
[2018-08-03] MEDS ORDERED: DEXTROSE 5% 1,000 ML IV SCH (09:00)
[2018-08-03] MEDS: VORICONAZOLE 200 MG TABLET PO SCH (09:23)
[2018-08-03] MEDS: FLECAINIDE 50 MG TABLET PO SCH (09:23)
[2018-08-03] MEDS: WARFARIN 5 MG TABLET PO SCH (09:24)
[2018-08-03] MEDS: PANTOPRAZOLE 40 MG TABLET PO SCH (09:25)
[2018-08-03] MEDS: amLODIPine 2.5 MG TABLET PO SCH (09:27)
[2018-08-03] MEDS ORDERED: GRANISETRON 1 MG/1 ML VIAL IV ONE (10:00)
[2018-08-03] MEDS ORDERED: SODIUM CHLORIDE 0.9% IV ONE (10:30)
[2018-08-03] MEDS ORDERED: DECITABINE IV ONE (10:30)
[2018-08-03 16:47] VITALS: BP 114/58
== END 2018-08-03 17:55 | disposition home or self-care (01) | DRG 809 ==
LOC: N.ED 23:53 → N.EDINP 08-02 03:18 → N.TELES 08-02 03:54 → N.4E 08-02 18:39
PROVIDERS: ADMIT Family Medicine; ATTEND Family Medicine

== ENCOUNTER 2018-08-09 16:00 | Inpatient (IN) ==
[2018-08-09] MEDS ORDERED: ONDANSETRON 4 MG/2 ML VIAL IV STA (16:24)
[2018-08-09] MEDS ORDERED: ACETAMINOPHEN 500 MG TABLET PO STA (16:24)
[2018-08-09] MEDS ORDERED: DIPH/TET/ACEL PERT BOOSTER VACCINE 0.5 ML VIAL IM ONE (16:24)
[2018-08-09 17:27] LABS: Hematocrit 21.5 VOL% (42.0-52.0); Hemoglobin 7.2 GM/DL (14.0-18.0); Lymphocytes # 0.1 10*3/uL (1.4-4.0); Lymphocytes % 86.7 % (21.2-54.2); Mean Corpuscular HGB Conc 33.5 GM/DL (32-36); Mean Corpuscular Hemoglobin 31 PG (27-34); Mean Corpuscular Volume 91.1 FL (87-102); Mean Platelet Volume 10.1 FL (9.6-12.0); Neutrophils % 13.3 % (38.7-73.9); Red Blood Count 2.36 MC/CUMM (3.8-5.5); Red Cell Distribution Width 15.9 % (9.3-17.3)
[2018-08-09] MEDS ORDERED: LEVOFLOXACIN INJ 500 MG in PREMIX 1 EACH IV STA (17:36)
[2018-08-09 17:38] LABS: Platelet Count 36 T/CUMM (130-400); White Blood Count 0.2 T/CUMM (4-12)
[2018-08-09 17:42] LABS: PT Patient Result 57.3 SECS
[2018-08-09 17:44] LABS: INR 5.8
[2018-08-09 17:55] LABS: Ammonia 21 UMOL/L (11-32)
[2018-08-09 18:00] LABS: Alanine Aminotransferase 36 U/L (16-61); Albumin 2.5 G/DL (3.4-5.0); Alkaline Phosphatase 62 U/L (45-117); Aspartate Amino Transferase 27 U/L (0-37); Blood Urea Nitrogen 18 MG/DL (7-18); Calcium 8.1 MG/DL (8.5-10.1); Glucose 113 MG/DL (74-106); Potassium 3.8 MMOL/L (3.5-5.1); Sodium 136 MMOL/L (136-145)
[2018-08-09 18:01] LABS: Lactic Acid 2.8 MMOL/L (0.4-2.0)
[2018-08-09] MEDS ORDERED: VANCOMYCIN INJ 1,000 MG in SODIUM CHLORIDE 0.9% 250 ML IV STA (18:19)
[2018-08-09] MEDS ORDERED: ALBUTEROL/IPRATROPIUM 3 ML NEB RESP TX STA (18:23)
[2018-08-09] MEDS ORDERED: LEVOFLOXACIN INJ 750 MG in PREMIX 1 EACH IV SCH (18:30)
[2018-08-09 19:08] LABS: Apearance,Urine CLEAR (Clear); Bacteria,Urine Occasional /HPF (Few); Bilirubin,Urine Negative (Negative); Blood, Urine Negative (Negative); Glucose,Urine (UA) Negative (Negative); Ketones,Urine Negative (Negative); Nitrite,Urine Negative (Negative); Protein,Urine Negative; Urine Color Yellow (Yellow); Urine Specific Gravity 1.006 (1.001-1.035); Urine Urobilinogen < 2.0 EU/DL (0.2-1.0); WBC,Urine 1 /HPF (0-6)
[2018-08-09] MEDS ORDERED: NOREPINEPHRINE 8 MG in SODIUM CHLORIDE 0.9% 242 ML IV PRN (19:22)
[2018-08-09] MEDS ORDERED: NOREPINEPHRINE 4 MG/4 ML VIAL IV ONE (19:27)
[2018-08-09] MEDS ORDERED: SODIUM CHLORIDE 0.9% 1,000 ML IV PRN (21:08)
[2018-08-09] MEDS ORDERED: DEXTROSE 50% 25 GM/50 ML VIAL IV PRN (21:08)
[2018-08-09] MEDS ORDERED: ACETAMINOPHEN 325 MG TABLET PO PRN (21:08)
[2018-08-09] MEDS ORDERED: HYDROmorphone 2 MG TABLET PO PRN (21:08)
[2018-08-09] MEDS ORDERED: ACETAMINOPHEN 500 MG TABLET PO PRN (21:08)
[2018-08-09] MEDS ORDERED: GLUCAGON 1 MG VIAL IM PRN (21:08)
[2018-08-09] MEDS ORDERED: TEMAZEPAM 15 MG CAPSULE PO PRN (21:08)
[2018-08-09] MEDS ORDERED: ONDANSETRON 4 MG/2 ML VIAL IV PRN (21:08)
[2018-08-09 21:12] LABS: Lymphocytes 80 % (20-55); Platelet Estimate Decreased; Segmented Neutrophils 20 % (50-85); Total Cells Counted 100
[2018-08-09] MEDS: SODIUM CHLORIDE 0.9% 1,000 ML IV SCH (22:30)
[2018-08-09] MEDS: MEROPENEM 1,000 MG in SODIUM CHLORIDE 0.9% 100 ML IV SCH (22:31)
[2018-08-09] MEDS: DOCUSATE SODIUM 100 MG CAPSULE PO SCH (22:36)
[2018-08-09] MEDS: FLECAINIDE 50 MG TABLET PO SCH (22:44)
[2018-08-09 23:53] LABS: PT Patient Result 80.9 SECS; Partial Thromboplastin Time 74.5 SECS (0-40)
[2018-08-09 23:55] LABS: INR 8.3
[2018-08-10] MEDS: ALBUTEROL/IPRATROPIUM 3 ML NEB RESP TX SCH ×3 (00:28→07:00)
[2018-08-10] MEDS: INSULIN REGULAR 100 UNIT/ML SUBCUT SCH ×5 (01:36→23:20)
[2018-08-10] MEDS ORDERED: NOREPINEPHRINE 4 MG/4 ML VIAL IV ONE (03:10)
[2018-08-10] MEDS: NOREPINEPHRINE 8 MG in SODIUM CHLORIDE 0.9% 242 ML IV PRN ×4 (03:22→23:55)
[2018-08-10] MEDS: SODIUM CHLORIDE 0.9% 1,000 ML IV SCH ×2 (05:31→20:50)
[2018-08-10 05:34] LABS: Hemoglobin 7.8 GM/DL (14.0-18.0); Lymphocytes # 0.2 10*3/uL (1.4-4.0); Lymphocytes % 88.9 % (21.2-54.2); Mean Corpuscular HGB Conc 32.5 GM/DL (32-36); Mean Corpuscular Hemoglobin 30 PG (27-34); Mean Corpuscular Volume 92.3 FL (87-102); Monocytes % 5.6 % (1.7-12.7); Neutrophils % 5.5 % (38.7-73.9); Red Cell Distribution Width 15.9 % (9.3-17.3)
[2018-08-10 05:41] LABS: White Blood Count 0.2 T/CUMM (4-12)
[2018-08-10 05:42] LABS: Platelet Count 33 T/CUMM (130-400)
[2018-08-10 05:54] LABS: Albumin 1.9 G/DL (3.4-5.0); Bilirubin,Total 1.4 MG/DL (0.2-1.0); Calcium 6.4 MG/DL (8.5-10.1); Osmolality,Calculated 285.1 MOS/KG (273-304); Potassium 3.3 MMOL/L (3.5-5.1); Total Protein 4.7 G/DL (6.4-8.3)
[2018-08-10] MEDS: MEROPENEM 1,000 MG in SODIUM CHLORIDE 0.9% 100 ML IV SCH ×2 (05:56→13:29)
[2018-08-10 06:24] LABS: Hypochromasia 1+; Lymphocytes 100 % (20-55); Platelet Estimate Decreased; Total Cells Counted 100
[2018-08-10 06:25] LABS: Atypical Lymphocytes Few; Microcytosis Slight
[2018-08-10] MEDS ORDERED: FUROSEMIDE 20 MG/2 ML VIAL IV ONE ×2 (08:02→14:38)
[2018-08-10] MEDS ORDERED: MAGNESIUM SULF RIDER 4 GM in PREMIX 1 EACH IV PRN (08:04)
[2018-08-10] MEDS ORDERED: MAGNESIUM SULF RIDER 2 GM in PREMIX 1 EACH IV PRN (08:04)
[2018-08-10 08:33] LABS: Amorphous Crystals,Urine Occasional /HPF (Few); Apearance,Urine CLOUDY (Clear); Bacteria,Urine Occasional /HPF (Few); Bilirubin,Urine Negative (Negative); Blood, Urine Small mg/dL (Negative); Glucose,Urine (UA) 50 mg/dL (Negative); Granular Casts,Urine 6 /LPF (0-1); Hyaline Casts,Urine 2 /LPF (0-3); Ketones,Urine Negative (Negative); Mucus,Urine Occasional /LPF (Occasional); Nitrite,Urine Negative (Negative); Protein,Urine 30 MG/DL; RBC,Urine 12 /HPF (0-4); Red Blood Cell Casts,Urine 6 /LPF (<1); Urine Color Amber (Yellow); Urine Specific Gravity 1.017 (1.001-1.035)
[2018-08-10] MEDS: DOCUSATE SODIUM 100 MG CAPSULE PO SCH ×2 (08:52→21:03)
[2018-08-10] MEDS: FLECAINIDE 50 MG TABLET PO SCH ×2 (08:52→21:36)
[2018-08-10] MEDS: PANTOPRAZOLE 40 MG VIAL IV SCH (08:57)
[2018-08-10] MEDS ORDERED: ZINC PO SCH (09:00)
[2018-08-10] MEDS ORDERED: NON-FORMULARY MEDICATION (Cyanocobalamin (Vitamin B-12) [Vitamin B-12] 5,000 MCG) SL SCH (09:00)
[2018-08-10] MEDS ORDERED: COPPER PO SCH (09:00)
[2018-08-10] MEDS ORDERED: NON-FORMULARY MEDICATION (Omeprazole [Prilosec] 20 MG) PO SCH (09:00)
[2018-08-10] MEDS ORDERED: VANCOMYCIN INJ 1,000 MG in SODIUM CHLORIDE 0.9% 250 ML IV SCH (09:00)
[2018-08-10] MEDS ORDERED: CETIRIZINE 10 MG TABLET PO SCH (09:00)
[2018-08-10] MEDS ORDERED: VIT E PO SCH (09:00)
[2018-08-10] MEDS ORDERED: amLODIPine 2.5 MG TABLET PO SCH (09:00)
[2018-08-10] MEDS ORDERED: VIT A PO SCH (09:00)
[2018-08-10] MEDS ORDERED: VIT C PO SCH (09:00)
[2018-08-10] MEDS: MULTIVITAMIN (CENTRUM) TABLET PO SCH (09:03)
[2018-08-10] MEDS ORDERED: PHYTONADIONE 10 MG/1 ML AMP SUBCUT ONE (09:22)
[2018-08-10] MEDS: SULFAMETHOX/TRIMETHOPRIM 400-80 MG TABLET PO SCH ×2 (09:47→21:03)
[2018-08-10] MEDS: methylPREDNISolone SOD SUC 125 MG/2 ML VIAL IV SCH ×2 (09:47→21:04)
[2018-08-10] MEDS: LEVALBUTEROL 1.25 MG/3 ML NEB RESP TX SCH ×2 (10:50→19:26)
[2018-08-10] MEDS ORDERED: LEVALBUTEROL 1.25 MG/3 ML NEB RESP TX SCH (12:00)
[2018-08-10] MEDS ORDERED: SODIUM PHOSPHATE ENEMA 133 ML BOTTLE RECTAL PRN (13:18)
[2018-08-10] MEDS: POTASSIUM CHLORIDE RIDER 10 MEQ in PREMIX 1 EACH IV PRN ×4 (14:05→18:19)
[2018-08-10 14:48] LABS: Hematocrit 32.6 VOL% (42.0-52.0); Hemoglobin 10.8 GM/DL (14.0-18.0)
[2018-08-10] MEDS: MORPHINE 4 MG/1 ML VIAL IV PRN ×2 (17:22→20:51)
[2018-08-11] MEDS ORDERED: FUROSEMIDE 40 MG/4 ML VIAL IV ONE
[2018-08-11] MEDS: LEVALBUTEROL 1.25 MG/3 ML NEB RESP TX SCH ×3 (00:35→13:00)
[2018-08-11] MEDS: MORPHINE 4 MG/1 ML VIAL IV PRN ×5 (00:55→21:42)
[2018-08-11] MEDS: MEROPENEM 1,000 MG in SODIUM CHLORIDE 0.9% 100 ML IV SCH ×2 (01:00→14:15)
[2018-08-11 05:08] LABS: Hemoglobin 10.4 GM/DL (14.0-18.0); Lymphocytes # 0.1 10*3/uL (1.4-4.0); Lymphocytes % 85.7 % (21.2-54.2); Mean Corpuscular HGB Conc 33.5 GM/DL (32-36); Mean Corpuscular Hemoglobin 30 PG (27-34); Mean Corpuscular Volume 87.8 FL (87-102); Mean Platelet Volume 12.5 FL (9.6-12.0); Monocytes % 14.3 % (1.7-12.7); Red Blood Count 3.53 MC/CUMM (3.8-5.5); Red Cell Distribution Width 17.9 % (9.3-17.3)
[2018-08-11 05:13] LABS: Platelet Count 16 T/CUMM (130-400); White Blood Count 0.1 T/CUMM (4-12)
[2018-08-11 05:29] LABS: Hypochromasia 1+; Lymphocytes 100 % (20-55); Ovalocytes Slight; Platelet Estimate Decreased; Total Cells Counted 100
[2018-08-11 05:30] LABS: Atypical Lymphocytes Few; Microcytosis Slight
[2018-08-11 05:46] LABS: Albumin 2.2 G/DL (3.4-5.0); Bilirubin,Total 1.9 MG/DL (0.2-1.0); Calcium 7.5 MG/DL (8.5-10.1); Osmolality,Calculated 281.1 MOS/KG (273-304); Potassium 5.6 MMOL/L (3.5-5.1); Total Protein 5.8 G/DL (6.4-8.3)
[2018-08-11] MEDS: NOREPINEPHRINE 8 MG in SODIUM CHLORIDE 0.9% 242 ML IV PRN ×2 (06:08→12:50)
[2018-08-11] MEDS: INSULIN REGULAR 100 UNIT/ML SUBCUT SCH ×2 (06:28→13:11)
[2018-08-11 07:07] LABS: PT Patient Result 131.5 SECS
[2018-08-11 07:10] LABS: INR 13.7
[2018-08-11] MEDS: methylPREDNISolone SOD SUC 125 MG/2 ML VIAL IV SCH (10:17)
[2018-08-11] MEDS: PANTOPRAZOLE 40 MG VIAL IV SCH (10:20)
[2018-08-11] MEDS: MULTIVITAMIN (CENTRUM) TABLET PO SCH ×2 (10:24→10:27)
[2018-08-11] MEDS: DOCUSATE SODIUM 100 MG CAPSULE PO SCH (10:27)
[2018-08-11] MEDS: FLECAINIDE 50 MG TABLET PO SCH (10:27)
[2018-08-11] MEDS: SULFAMETHOX/TRIMETHOPRIM 400-80 MG TABLET PO SCH (12:20)
[2018-08-11] MEDS: SODIUM CHLORIDE 0.9% 1,000 ML IV SCH (12:35)
[2018-08-12] MEDS: MORPHINE 4 MG/1 ML VIAL IV PRN ×14 (00:04→22:59)
[2018-08-12] MEDS: INSULIN REGULAR 100 UNIT/ML SUBCUT SCH (15:17)
[2018-08-13] MEDS: MORPHINE 4 MG/1 ML VIAL IV PRN ×8 (00:28→11:52)
[2018-08-13] MEDS: LORazepam 2 MG/1 ML VIAL IV PRN ×3 (05:30→15:29)
[2018-08-13] MEDS: MORPHINE 10 MG/1 ML VIAL IV PRN ×6 (13:15→18:57)
[2018-08-13 20:04] VITALS: BP 60/32
== END 2018-08-13 20:05 | disposition expired | DRG 871 ==
LOC: EDBD → EDUNIT# → N.ED 16:00 → N.EDINP 18:46 → N.CC 19:38 → N.4E 08-12 09:43
PROVIDERS: ADMIT Family Medicine; ATTEND Family Medicine